=== PATIENT | male | born 1955 | race Asian ===

== ENCOUNTER 2016-11-14 10:13 | Inpatient (IN) | payer MEDICAID ==
[~2016-11-14] VITALS: Ht 188 cm; Wt 126.8 kg
[~2016-11-14 10:13] MED LIST: ALLO100T PO; ASCO500C6 PO; FERR-63 PO; GLIP10TA10 PO; LISI-604 PO; METF10002 PO; MITIGARE
[2016-11-14] MEDS ORDERED: CELE50CA PO (10:24)
[2016-11-14 12:01] LABS: BASOPHILS % 0.6 % (0.0-2.0); EOSINOPHILS % 3.8 % (0.0-5.0); HEMATOCRIT. 25.4 % (42.0-52.0); HEMOGLOBIN. 8.2 g/dL (14.0-18.0); LYMPHOCYTES % 12.8 % (20.0-50.0); MEAN CORPUSCULAR HEMOGLOBIN 26.6 pg (28.0-32.0); MEAN CORPUSCULAR VOLUME 81.7 fL (80.0-94.0); MEAN PLATELET VOLUME 6.3 fl (7.4-10.4); MONOCYTES % 8.5 % (2.0-8.0); NEUTROPHILS % 74.3 % (40.0-76.0); PLATELET 458 x1000/uL (130-400); RED CELL DISTRIBUTION WIDTH 14.7 % (11.6-14.6)
[2016-11-14 12:06] LABS: INR 1.4; PROTHROMBIN TIME 14.5 sec
[2016-11-14 12:11] LABS: CARBON DIOXIDE 23 mEq/L (21-32); CHLORIDE 108 mEq/L (98-107)
[2016-11-14] MEDS ORDERED: METRONIDAZOLE 500MG TABLET PO ONE (14:00)
[2016-11-14 14:06] LABS: CLARITY URINE CLEAR (CLEAR); COLOR URINE YELLOW (YELLOW); GLUCOSE URINE TRACE (NEGATIVE); KETONES URINE NEGATIVE (NEGATIVE); LEUKOCYTE ESTERASE URINE NEGATIVE (NEGATIVE); NITRITE URINE NEGATIVE (NEGATIVE); OCCULT BLOOD URINE NEGATIVE (NEGATIVE); PROTEIN URINE 3+ (NEGATIVE); UROBILINOGEN URINE 0.2 E.U./dL (0.2-1.0)
[2016-11-14] MEDS ORDERED: DIPHENHYDRAMINE 50MG/ML VIAL IV PRN (16:30)
[2016-11-14] MEDS ORDERED: DEXTROSE 50% WATER 50ML SYRINGE IV PRN (16:30)
[2016-11-14] MEDS ORDERED: CEFTRIAXONE 1 G PREMIX 50 ML IV SCH (16:30)
[2016-11-14] MEDS ORDERED: CEFTRIAXONE 2 G PREMIX 50 ML IV NR (16:45)
[2016-11-14] MEDS: INSULIN LISPRO 100 UNITS/ML SUBCUT SCH ×2 (17:54→21:00)
[2016-11-14 17:55] VITALS: BP 144/89
[2016-11-14] MEDS: BLOOD SUGAR DIAGNOSTIC STRIP TEST SCH ×2 (17:55→21:45)
[2016-11-14] MEDS ORDERED: PANT40TA4 PO (18:02)
[2016-11-14] MEDS ORDERED: METO25TA6 PO (18:02)
[2016-11-14] MEDS ORDERED: DOCU-138 PO (18:02)
[2016-11-14] MEDS ORDERED: LOSA25TA12 PO (18:02)
[2016-11-14] MEDS ORDERED: HYDR-523 PO (18:02)
[2016-11-14 20:00] VITALS: BP 137/78
[2016-11-14] MEDS ORDERED: CEFTRIAXONE 2 G PREMIX 50 ML IV SCH (20:00)
[2016-11-14] MEDS: IPRATROPIUM/ALBUTEROL 0.5-3(2.5)MG/3ML NEB INH SCH (22:03)
[2016-11-14] MEDS: CEFTRIAXONE 2 G in DEXTROSE 5% WATER 50 ML IV SCH (22:06)
[2016-11-14] MEDS: METRONIDAZOLE 500 MG PREMIX 100 ML IV SCH (22:07)
[2016-11-14 23:25] VITALS: BP 144/89
[2016-11-15] VITALS: BP 118/61
[2016-11-15] MEDS: IPRATROPIUM/ALBUTEROL 0.5-3(2.5)MG/3ML NEB INH SCH ×4 (02:29→21:01)
[2016-11-15 04:00] VITALS: BP 125/81
[2016-11-15] MEDS: METRONIDAZOLE 500 MG PREMIX 100 ML IV SCH ×3 (05:47→22:36)
[2016-11-15 06:36] LABS: BASOPHILS % 0.6 % (0.0-2.0); EOSINOPHILS % 2.7 % (0.0-5.0); HEMATOCRIT. 24.1 % (42.0-52.0); HEMOGLOBIN. 7.8 g/dL (14.0-18.0); LYMPHOCYTES % 12.9 % (20.0-50.0); MEAN CORPUSCULAR HEMOGLOBIN 26.4 pg (28.0-32.0); MEAN CORPUSCULAR VOLUME 81.7 fL (80.0-94.0); MEAN PLATELET VOLUME 6.6 fl (7.4-10.4); MONOCYTES % 8.2 % (2.0-8.0); NEUTROPHILS % 75.6 % (40.0-76.0); PLATELET 432 x1000/uL (130-400); RED BLOOD CELL COUNT 2.96 mill/uL (4.7-6.1); RED CELL DISTRIBUTION WIDTH 14.8 % (11.6-14.6)
[2016-11-15 07:06] LABS: CARBON DIOXIDE 21 mEq/L (21-32); CHLORIDE 110 mEq/L (98-107); HDL CHOLESTEROL 19 mg/dL (40-59); LDL CHOLESTEROL 38 mg/dL (5-100)
[2016-11-15] MEDS: INSULIN LISPRO 100 UNITS/ML SUBCUT SCH ×4 (07:50→21:00)
[2016-11-15] MEDS: BLOOD SUGAR DIAGNOSTIC STRIP TEST SCH ×4 (07:55→21:00)
[2016-11-15 08:00] VITALS: BP 137/92
[2016-11-15] MEDS: LACTOBACILLUS GG CAPSULE PO SCH (09:26)
[2016-11-15 12:00] VITALS: BP 140/87
[2016-11-15 16:00] VITALS: BP 143/85
[2016-11-15 20:00] VITALS: BP 137/83
[2016-11-15] MEDS: CEFTRIAXONE 2 G in DEXTROSE 5% WATER 50 ML IV SCH (20:42)
[2016-11-16] VITALS: BP 128/78
[2016-11-16] MEDS: IPRATROPIUM/ALBUTEROL 0.5-3(2.5)MG/3ML NEB INH SCH ×4 (03:12→19:53)
[2016-11-16 04:00] VITALS: BP 133/80
[2016-11-16] MEDS: METRONIDAZOLE 500 MG PREMIX 100 ML IV SCH ×2 (06:05→16:00)
[2016-11-16] MEDS: BLOOD SUGAR DIAGNOSTIC STRIP TEST SCH ×4 (06:36→21:00)
[2016-11-16 07:14] LABS: BASOPHILS % 0.5 % (0.0-2.0); EOSINOPHILS % 2.1 % (0.0-5.0); HEMATOCRIT. 23.9 % (42.0-52.0); HEMOGLOBIN. 7.8 g/dL (14.0-18.0); LYMPHOCYTES % 10.7 % (20.0-50.0); MEAN CORPUSCULAR HEMOGLOBIN 26.5 pg (28.0-32.0); MEAN CORPUSCULAR VOLUME 81.3 fL (80.0-94.0); MEAN PLATELET VOLUME 6.4 fl (7.4-10.4); MONOCYTES % 8.9 % (2.0-8.0); NEUTROPHILS % 77.8 % (40.0-76.0); PLATELET 419 x1000/uL (130-400); RED BLOOD CELL COUNT 2.93 mill/uL (4.7-6.1)
[2016-11-16] MEDS: INSULIN LISPRO 100 UNITS/ML SUBCUT SCH ×4 (07:50→23:55)
[2016-11-16 08:00] VITALS: BP 145/89
[2016-11-16] MEDS: LACTOBACILLUS GG CAPSULE PO SCH (09:24)
[2016-11-16 12:00] VITALS: BP 139/89
[2016-11-16] MEDS: HYDROCODONE/ACETAMINOPHEN 5/325MG TABLET PO PRN ×2 (12:50→18:39)
[2016-11-16 20:00] VITALS: BP 125/83
[2016-11-16] MEDS: CEFTRIAXONE 2 G in DEXTROSE 5% WATER 50 ML IV SCH (20:21)
[2016-11-17] VITALS: BP 153/88
[2016-11-17] MEDS: HYDROCODONE/ACETAMINOPHEN 5/325MG TABLET PO PRN ×2 (00:02→08:23)
[2016-11-17] MEDS: METRONIDAZOLE 500 MG PREMIX 100 ML IV SCH ×4 (00:03→22:42)
[2016-11-17] MEDS: ACETAMINOPHEN 325MG TABLET PO PRN ×3 (00:57→22:42)
[2016-11-17] MEDS: IPRATROPIUM/ALBUTEROL 0.5-3(2.5)MG/3ML NEB INH SCH ×4 (01:20→21:11)
[2016-11-17 04:00] VITALS: BP 119/65
[2016-11-17] MEDS: BLOOD SUGAR DIAGNOSTIC STRIP TEST SCH ×4 (07:57→21:10)
[2016-11-17 08:00] VITALS: BP 155/88
[2016-11-17] MEDS: INSULIN LISPRO 100 UNITS/ML SUBCUT SCH ×4 (08:19→21:09)
[2016-11-17] MEDS: LACTOBACILLUS GG CAPSULE PO SCH (08:22)
[2016-11-17 12:00] VITALS: BP 126/78
[2016-11-17 16:00] VITALS: BP 105/67
[2016-11-17] MEDS ORDERED: IBUPROFEN 600MG TABLET PO PRN (16:45)
[2016-11-17 19:31] LABS: TOTAL IRON BINDING CAPACITY 192 ug/dL (250-450)
[2016-11-17 20:00] VITALS: BP 163/84
[2016-11-17] MEDS ORDERED: ACETAMINOPHEN 650MG/20.3ML UDC PO PRN (20:15)
[2016-11-17] MEDS: CEFTRIAXONE 2 G in DEXTROSE 5% WATER 50 ML IV SCH (20:31)
[2016-11-17] MEDS: MORPHINE SULFATE 4 MG/ML CPJ (NOT FOR IM USE) IV PRN (20:39)
[2016-11-18] VITALS: BP 122/72
[2016-11-18] MEDS: IPRATROPIUM/ALBUTEROL 0.5-3(2.5)MG/3ML NEB INH SCH ×4 (00:56→20:22)
[2016-11-18 04:00] VITALS: BP 127/72
[2016-11-18] MEDS: METRONIDAZOLE 500 MG PREMIX 100 ML IV SCH ×3 (06:31→21:35)
[2016-11-18] MEDS: BLOOD SUGAR DIAGNOSTIC STRIP TEST SCH ×4 (06:57→21:34)
[2016-11-18 07:38] LABS: BASOPHILS % 0.4 % (0.0-2.0); HEMATOCRIT. 23.7 % (42.0-52.0); HEMOGLOBIN. 7.7 g/dL (14.0-18.0); LYMPHOCYTES % 7.3 % (20.0-50.0); MEAN CORPUSCULAR HEMOGLOBIN 26.5 pg (28.0-32.0); MEAN CORPUSCULAR VOLUME 81.8 fL (80.0-94.0); MEAN PLATELET VOLUME 6.9 fl (7.4-10.4); MONOCYTES % 12.7 % (2.0-8.0); NEUTROPHILS % 78.6 % (40.0-76.0); PLATELET 384 x1000/uL (130-400); RED CELL DISTRIBUTION WIDTH 15.1 % (11.6-14.6)
[2016-11-18 08:00] VITALS: BP 169/99
[2016-11-18] MEDS: INSULIN LISPRO 100 UNITS/ML SUBCUT SCH ×4 (09:01→21:53)
[2016-11-18] MEDS: LACTOBACILLUS GG CAPSULE PO SCH (09:01)
[2016-11-18] MEDS: MORPHINE SULFATE 4 MG/ML CPJ (NOT FOR IM USE) IV PRN ×3 (09:32→21:41)
[2016-11-18] MEDS: CLONIDINE 0.1MG TABLET PO PRN (09:41)
[2016-11-18] MEDS ORDERED: MAGNESIUM 4 G PREMIX 100 ML IV SCH (10:00)
[2016-11-18 12:00] VITALS: BP 134/68
[2016-11-18] MEDS: HYDROCODONE/ACETAMINOPHEN 5/325MG TABLET PO PRN (14:11)
[2016-11-18] MEDS ORDERED: SODIUM CHLORIDE 0.45% 1,000 ML IV SCH (14:30)
[2016-11-18 16:00] VITALS: BP 112/63
[2016-11-18] MEDS: IRON SUCROSE COMPLEX 100 MG/5 ML ML IV SCH (17:14)
[2016-11-18 18:32] LABS: FOLIC ACID (FOLATE) SERUM 16.3 ng/mL (>5.38)
[2016-11-18 20:00] VITALS: BP 106/58
[2016-11-18] MEDS: METOPROLOL TARTRATE 25MG TABLET PO SCH (21:00)
[2016-11-18] MEDS: CEFTRIAXONE 2 G in DEXTROSE 5% WATER 50 ML IV SCH (21:34)
[2016-11-19] VITALS: BP 165/89
[2016-11-19] MEDS: IPRATROPIUM/ALBUTEROL 0.5-3(2.5)MG/3ML NEB INH SCH ×4 (01:44→21:13)
[2016-11-19] MEDS: CLONIDINE 0.1MG TABLET PO PRN (02:00)
[2016-11-19] MEDS: MORPHINE SULFATE 4 MG/ML CPJ (NOT FOR IM USE) IV PRN ×3 (02:00→15:20)
[2016-11-19] MEDS: HYDROCODONE/ACETAMINOPHEN 5/325MG TABLET PO PRN (03:17)
[2016-11-19 04:00] VITALS: BP 128/81
[2016-11-19] MEDS: METRONIDAZOLE 500 MG PREMIX 100 ML IV SCH ×3 (06:37→22:47)
[2016-11-19] MEDS: BLOOD SUGAR DIAGNOSTIC STRIP TEST SCH ×4 (06:38→21:05)
[2016-11-19] MEDS: INSULIN LISPRO 100 UNITS/ML SUBCUT SCH ×4 (06:45→21:15)
[2016-11-19 07:17] LABS: HEMATOCRIT. 23.9 % (42.0-52.0); HEMOGLOBIN. 7.7 g/dL (14.0-18.0); MEAN PLATELET VOLUME 7.2 fl (7.4-10.4); PLATELET 426 x1000/uL (130-400); RED BLOOD CELL COUNT 2.95 mill/uL (4.7-6.1); RED CELL DISTRIBUTION WIDTH 15.4 % (11.6-14.6)
[2016-11-19 08:00] VITALS: BP 99/75
[2016-11-19] MEDS: LACTOBACILLUS GG CAPSULE PO SCH (08:34)
[2016-11-19] MEDS: IRON SUCROSE COMPLEX 100 MG/5 ML ML IV SCH (08:36)
[2016-11-19] MEDS: METOPROLOL TARTRATE 25MG TABLET PO SCH ×2 (08:47→21:05)
[2016-11-19 12:00] VITALS: BP 135/77
[2016-11-19 12:56] LABS: PLATELET ESTIMATE SLIGHTLY INCREASED
[2016-11-19] MEDS: ACETAMINOPHEN 325MG TABLET PO PRN ×2 (14:17→21:04)
[2016-11-19 16:00] VITALS: BP 100/70
[2016-11-19] MEDS ORDERED: VANCOMYCIN 2,000 MG in DEXT 5% WATER 500 ML IV SCH (18:00)
[2016-11-19 20:00] VITALS: BP 111/71
[2016-11-19] MEDS: CEFTRIAXONE 2 G in DEXTROSE 5% WATER 50 ML IV SCH (21:04)
[2016-11-20] VITALS (13 sets, daily range): BP systolic 102–144; BP diastolic 65–87
[2016-11-20] MEDS: IPRATROPIUM/ALBUTEROL 0.5-3(2.5)MG/3ML NEB INH SCH ×4 (03:45→20:20)
[2016-11-20] MEDS: MORPHINE SULFATE 4 MG/ML CPJ (NOT FOR IM USE) IV PRN ×3 (04:05→18:56)
[2016-11-20] MEDS ORDERED: DILTIAZEM HCL 5MG/ML 5ML VIAL IV ONE (05:15)
[2016-11-20] MEDS ORDERED: DILTIAZEM HCL 5MG/ML 5ML VIAL IV NR (05:15)
[2016-11-20] MEDS: BLOOD SUGAR DIAGNOSTIC STRIP TEST SCH ×4 (06:25→21:27)
[2016-11-20] MEDS: METRONIDAZOLE 500 MG PREMIX 100 ML IV SCH ×3 (06:25→22:39)
[2016-11-20] MEDS: ACETAMINOPHEN 325MG TABLET PO PRN (08:05)
[2016-11-20] MEDS: LACTOBACILLUS GG CAPSULE PO SCH (08:06)
[2016-11-20] MEDS: METOPROLOL TARTRATE 25MG TABLET PO SCH ×2 (08:08→21:27)
[2016-11-20] MEDS: DILTIAZEM 125MG in DEXTROSE 5% WATER 125ML IV SCH ×3 (08:09→21:18)
[2016-11-20] MEDS: INSULIN LISPRO 100 UNITS/ML SUBCUT SCH ×4 (08:11→21:27)
[2016-11-20 09:19] LABS: HEMATOCRIT. 23.7 % (42.0-52.0); HEMOGLOBIN. 7.5 g/dL (14.0-18.0); MEAN CORPUSCULAR HEMOGLOBIN 25.9 pg (28.0-32.0); MEAN CORPUSCULAR VOLUME 81.5 fL (80.0-94.0); MEAN PLATELET VOLUME 7.5 fl (7.4-10.4); PLATELET 368 x1000/uL (130-400); RED CELL DISTRIBUTION WIDTH 15.7 % (11.6-14.6)
[2016-11-20] MEDS: VANCOMYCIN 1250MG in DEXTROSE 5% WATER 250ML IV SCH (12:00)
[2016-11-20] MEDS ORDERED: HYDROCODONE/APAP 7.5/325MG 1 TAB TABLET PO PRN (13:00)
[2016-11-20] MEDS ORDERED: ALLOPURINOL 100 MG TABLET PO SCH (13:00)
[2016-11-20] MEDS: PANTOPRAZOLE 40MG DR TABLET PO SCH (13:40)
[2016-11-20] MEDS ORDERED: MAGNESIUM 2 G PREMIX 50 ML IV SCH (14:00)
[2016-11-20 15:43] LABS: PLATELET ESTIMATE NORMAL
[2016-11-20] MEDS: SODIUM CHLORIDE 0.9% 1,000 ML IV NR (16:10)
[2016-11-20] MEDS ORDERED: BLOOD SUGAR DIAGNOSTIC STRIP TEST SCH (16:50)
[2016-11-20] MEDS ORDERED: INSULIN LISPRO 100 UNITS/ML SUBCUT SCH (17:20)
[2016-11-20] MEDS: CEFTRIAXONE 2 G in DEXTROSE 5% WATER 50 ML IV SCH (20:54)
[2016-11-20] MEDS: METHYLPREDNISOLONE SOD SUCC 40 MG/ML VIAL IV SCH ×2 (21:26→21:33)
[2016-11-20] MEDS: CELECOXIB 200MG CAPSULE PO SCH (21:27)
[2016-11-20] MEDS ORDERED: ALLOPURINOL 100 MG TABLET PO NR (21:30)
[2016-11-20] MEDS: BACITRACIN ZINC 15GM TUBE TOP SCH (22:14)
[2016-11-21] VITALS (12 sets, daily range): BP systolic 94–129; BP diastolic 52–88
[2016-11-21] MEDS: IPRATROPIUM/ALBUTEROL 0.5-3(2.5)MG/3ML NEB INH SCH ×4 (00:26→20:10)
[2016-11-21] MEDS: MORPHINE SULFATE 4 MG/ML CPJ (NOT FOR IM USE) IV PRN (00:33)
[2016-11-21] MEDS: DILTIAZEM 125MG in DEXTROSE 5% WATER 125ML IV SCH (01:24)
[2016-11-21] MEDS: ONDANSETRON HCL 4MG/2ML VIAL IV PRN (04:26)
[2016-11-21] MEDS: METRONIDAZOLE 500 MG PREMIX 100 ML IV SCH ×3 (05:07→21:15)
[2016-11-21] MEDS: BLOOD SUGAR DIAGNOSTIC STRIP TEST SCH ×4 (05:54→21:14)
[2016-11-21] MEDS: PANTOPRAZOLE 40MG DR TABLET PO SCH (06:03)
[2016-11-21] MEDS: METHYLPREDNISOLONE SOD SUCC 40 MG/ML VIAL IV SCH ×3 (06:03→21:15)
[2016-11-21] MEDS: VANCOMYCIN 1250MG in DEXTROSE 5% WATER 250ML IV SCH (06:03)
[2016-11-21 06:29] LABS: HEMATOCRIT. 25.4 % (42.0-52.0); HEMOGLOBIN. 8.1 g/dL (14.0-18.0); MEAN CORPUSCULAR VOLUME 81.4 fL (80.0-94.0); MEAN PLATELET VOLUME 7.8 fl (7.4-10.4); PLATELET 382 x1000/uL (130-400); RED BLOOD CELL COUNT 3.11 mill/uL (4.7-6.1); RED CELL DISTRIBUTION WIDTH 15.3 % (11.6-14.6)
[2016-11-21] MEDS ORDERED: SODIUM POLYSTYRENE SULFONATE 15 G/60 ML BOT PO NR (08:30)
[2016-11-21] MEDS: INSULIN LISPRO 100 UNITS/ML SUBCUT SCH ×4 (09:12→21:16)
[2016-11-21] MEDS: LACTOBACILLUS GG CAPSULE PO SCH (09:13)
[2016-11-21] MEDS: BACITRACIN ZINC 15GM TUBE TOP SCH (09:13)
[2016-11-21] MEDS: CELECOXIB 200MG CAPSULE PO SCH (09:13)
[2016-11-21] MEDS: ALLOPURINOL 300 MG TABLET PO SCH (09:13)
[2016-11-21] MEDS: METOPROLOL TARTRATE 25MG TABLET PO SCH (09:14)
[2016-11-21] MEDS: SODIUM CHLORIDE 0.9% 1,000 ML IV NR (09:15)
[2016-11-21 09:46] LABS: CREATINE KINASE 54 IU/L (39-308); PLATELET ESTIMATE NORMAL
[2016-11-21] MEDS: DOCUSATE SODIUM 100MG CAPSULE PO PRN (17:56)
[2016-11-21] MEDS: CEFTRIAXONE 2 G in DEXTROSE 5% WATER 50 ML IV SCH (20:13)
[2016-11-21] MEDS: METOPROLOL TARTRATE 50MG TABLET PO SCH (21:15)
[2016-11-22] VITALS (12 sets, daily range): BP systolic 116–141; BP diastolic 61–85
[2016-11-22] MEDS: IPRATROPIUM/ALBUTEROL 0.5-3(2.5)MG/3ML NEB INH SCH ×4 (01:40→21:00)
[2016-11-22] MEDS ORDERED: INSULIN LISPRO 100 UNITS/ML SUBCUT SCH (06:15)
[2016-11-22] MEDS: DOCUSATE SODIUM 100MG CAPSULE PO PRN (06:42)
[2016-11-22] MEDS: METHYLPREDNISOLONE SOD SUCC 40 MG/ML VIAL IV SCH ×2 (06:42→13:14)
[2016-11-22] MEDS: PANTOPRAZOLE 40MG DR TABLET PO SCH (06:42)
[2016-11-22] MEDS: INSULIN LISPRO 100 UNITS/ML SUBCUT SCH ×4 (06:43→21:09)
[2016-11-22] MEDS: BLOOD SUGAR DIAGNOSTIC STRIP TEST SCH ×4 (06:50→20:11)
[2016-11-22 06:53] LABS: HEMATOCRIT. 29.2 % (42.0-52.0); MEAN CORPUSCULAR HEMOGLOBIN 26.3 pg (28.0-32.0); MEAN PLATELET VOLUME 7.8 fl (7.4-10.4); PLATELET 430 x1000/uL (130-400); RED BLOOD CELL COUNT 3.43 mill/uL (4.7-6.1); RED CELL DISTRIBUTION WIDTH 15.8 % (11.6-14.6)
[2016-11-22 07:39] LABS: PHOSPHORUS 4.1 mg/dL (2.5-4.9)
[2016-11-22] MEDS ORDERED: SODIUM POLYSTYRENE SULFONATE 15 G/60 ML BOT PO SCH (09:00)
[2016-11-22] MEDS: ALLOPURINOL 300 MG TABLET PO SCH (09:11)
[2016-11-22] MEDS: LACTOBACILLUS GG CAPSULE PO SCH (09:11)
[2016-11-22] MEDS: CELECOXIB 200MG CAPSULE PO SCH (09:12)
[2016-11-22] MEDS: METOPROLOL TARTRATE 50MG TABLET PO SCH ×2 (09:12→20:11)
[2016-11-22] MEDS: BACITRACIN ZINC 15GM TUBE TOP SCH (09:19)
[2016-11-22] MEDS ORDERED: INSULIN LISPRO 100 UNITS/ML SUBCUT NR ×2 (11:30→16:47)
[2016-11-22 12:07] LABS: PLATELET ESTIMATE INCREASED
[2016-11-22] MEDS ORDERED: VANCOMYCIN 1 G PREMIX 200 ML IV SCH (13:00)
[2016-11-22] MEDS: DILTIAZEM HCL 60MG TABLET PO SCH ×2 (13:15→21:10)
[2016-11-22 13:18] LABS: HEPATITIS B SURFACE ANTIGEN NEGATIVE
[2016-11-22 13:45] LABS: HEPATITIS B CORE AB IGM NEGATIVE
[2016-11-22 13:46] LABS: HEPATITIS A AB IGM NEGATIVE (NEGATIVE)
[2016-11-22] MEDS: CEFTRIAXONE 2 G in DEXTROSE 5% WATER 50 ML IV SCH (20:07)
[2016-11-22] MEDS: PREDNISONE 10MG TABLET PO SCH (21:10)
[2016-11-23] VITALS (15 sets, daily range): BP systolic 105–162; BP diastolic 64–124
[2016-11-23] MEDS: IPRATROPIUM/ALBUTEROL 0.5-3(2.5)MG/3ML NEB INH SCH ×4 (01:30→20:39)
[2016-11-23] MEDS: ACETAMINOPHEN 325MG TABLET PO PRN (05:45)
[2016-11-23] MEDS: DILTIAZEM HCL 60MG TABLET PO SCH (05:46)
[2016-11-23] MEDS: BACITRACIN ZINC 15GM TUBE TOP SCH (05:46)
[2016-11-23] MEDS: PANTOPRAZOLE 40MG DR TABLET PO SCH (05:55)
[2016-11-23] MEDS: BLOOD SUGAR DIAGNOSTIC STRIP TEST SCH ×4 (05:55→20:16)
[2016-11-23 07:02] LABS: HEMATOCRIT. 28.9 % (42.0-52.0); HEMOGLOBIN. 9.3 g/dL (14.0-18.0); MEAN CORPUSCULAR HEMOGLOBIN 26.1 pg (28.0-32.0); MEAN PLATELET VOLUME 7.5 fl (7.4-10.4); PLATELET 487 x1000/uL (130-400); RED BLOOD CELL COUNT 3.56 mill/uL (4.7-6.1)
[2016-11-23 07:35] LABS: PHOSPHORUS 3.7 mg/dL (2.5-4.9)
[2016-11-23 07:42] LABS: MEAN CORPUSCULAR VOLUME 82.2 fL (80.0-94.0)
[2016-11-23] MEDS: INSULIN LISPRO 100 UNITS/ML SUBCUT SCH ×4 (08:26→21:27)
[2016-11-23] MEDS ORDERED: CELECOXIB 200MG CAPSULE PO SCH (09:00)
[2016-11-23] MEDS: METOPROLOL TARTRATE 50MG TABLET PO SCH ×2 (09:16→20:16)
[2016-11-23] MEDS: ALLOPURINOL 300 MG TABLET PO SCH (09:17)
[2016-11-23] MEDS: PREDNISONE 10MG TABLET PO SCH ×2 (09:17→16:54)
[2016-11-23] MEDS: LACTOBACILLUS GG CAPSULE PO SCH (09:17)
[2016-11-23] MEDS: CELECOXIB 100MG CAPSULE PO SCH (10:48)
[2016-11-23 13:11] LABS: PLATELET ESTIMATE SLIGHTL
[2016-11-23] MEDS: DILTIAZEM HCL 90MG TABLET PO SCH ×2 (13:37→21:28)
[2016-11-23] MEDS: ONDANSETRON HCL 4MG/2ML VIAL IV PRN (15:46)
[2016-11-23] MEDS ORDERED: BISACODYL 10MG SUPP PR NR (16:15)
[2016-11-23] MEDS: MORPHINE SULFATE 4 MG/ML CPJ (NOT FOR IM USE) IV PRN (16:41)
[2016-11-23] MEDS: SODIUM CHLORIDE 0.9% 1,000 ML IV SCH (16:42)
[2016-11-23] MEDS: VANCOMYCIN 1250MG in DEXTROSE 5% WATER 250ML IV SCH (16:42)
[2016-11-23] MEDS: CEFTRIAXONE 2 G in DEXTROSE 5% WATER 50 ML IV SCH (19:54)
[2016-11-24] VITALS (12 sets, daily range): BP systolic 103–124; BP diastolic 61–84
[2016-11-24] MEDS: IPRATROPIUM/ALBUTEROL 0.5-3(2.5)MG/3ML NEB INH SCH ×4 (02:46→19:55)
[2016-11-24] MEDS: BACITRACIN ZINC 15GM TUBE TOP SCH (05:01)
[2016-11-24] MEDS: BLOOD SUGAR DIAGNOSTIC STRIP TEST SCH ×4 (06:32→20:46)
[2016-11-24] MEDS: INSULIN LISPRO 100 UNITS/ML SUBCUT SCH ×4 (06:52→20:53)
[2016-11-24] MEDS: MORPHINE SULFATE 4 MG/ML CPJ (NOT FOR IM USE) IV PRN ×3 (06:58→22:06)
[2016-11-24] MEDS: LACTOBACILLUS GG CAPSULE PO SCH (08:14)
[2016-11-24] MEDS: CELECOXIB 100MG CAPSULE PO SCH (08:14)
[2016-11-24] MEDS: PREDNISONE 10MG TABLET PO SCH ×2 (08:14→17:04)
[2016-11-24] MEDS: PANTOPRAZOLE SODIUM 40 MG/VIAL IV SCH (08:14)
[2016-11-24] MEDS: ALLOPURINOL 300 MG TABLET PO SCH ×2 (08:14→20:41)
[2016-11-24] MEDS: METOPROLOL TARTRATE 5MG/5ML VIAL IV SCH ×3 (08:40→17:04)
[2016-11-24] MEDS: SODIUM CHLORIDE 0.9% 1,000 ML IV SCH (08:40)
[2016-11-24 09:32] LABS: BASOPHILS % 0.1 % (0.0-2.0); EOSINOPHILS % 0.1 % (0.0-5.0); HEMATOCRIT. 28.9 % (42.0-52.0); HEMOGLOBIN. 9.4 g/dL (14.0-18.0); LYMPHOCYTES % 9.1 % (20.0-50.0); MEAN CORPUSCULAR HEMOGLOBIN 26.5 pg (28.0-32.0); MEAN CORPUSCULAR VOLUME 81.3 fL (80.0-94.0); MEAN PLATELET VOLUME 7.4 fl (7.4-10.4); MONOCYTES % 13.4 % (2.0-8.0); NEUTROPHILS % 77.3 % (40.0-76.0); PLATELET 432 x1000/uL (130-400); RED BLOOD CELL COUNT 3.55 mill/uL (4.7-6.1)
[2016-11-24] MEDS: VANCOMYCIN 1250MG in DEXTROSE 5% WATER 250ML IV SCH (15:07)
[2016-11-24] MEDS: TETRACAINE/BENZOCAINE/BUTAMBEN 20 GM SPRAY MM PRN (16:51)
[2016-11-24] MEDS: COLCHICINE 0.6MG TABLET PO SCH (20:41)
[2016-11-24] MEDS: METHYLPREDNISOLONE SOD SUCC 40 MG/ML VIAL IV SCH (20:53)
[2016-11-24] MEDS: CEFTRIAXONE 2 G in DEXTROSE 5% WATER 50 ML IV SCH (20:54)
[2016-11-25] VITALS (12 sets, daily range): BP systolic 94–133; BP diastolic 60–80
[2016-11-25] MEDS: METOPROLOL TARTRATE 5MG/5ML VIAL IV SCH ×4 (00:01→17:24)
[2016-11-25] MEDS: IPRATROPIUM/ALBUTEROL 0.5-3(2.5)MG/3ML NEB INH SCH ×5 (01:21→20:05)
[2016-11-25] MEDS: SODIUM CHLORIDE 0.9% 1,000 ML IV SCH (02:52)
[2016-11-25] MEDS: METHYLPREDNISOLONE SOD SUCC 40 MG/ML VIAL IV SCH ×4 (02:54→21:04)
[2016-11-25] MEDS: MORPHINE SULFATE 4 MG/ML CPJ (NOT FOR IM USE) IV PRN (05:22)
[2016-11-25 05:38] LABS: HEMATOCRIT. 29.1 % (42.0-52.0); HEMOGLOBIN. 9.3 g/dL (14.0-18.0); MEAN CORPUSCULAR HEMOGLOBIN 26.4 pg (28.0-32.0); MEAN CORPUSCULAR VOLUME 82.8 fL (80.0-94.0); MEAN PLATELET VOLUME 7.6 fl (7.4-10.4); PLATELET 479 x1000/uL (130-400); RED BLOOD CELL COUNT 3.52 mill/uL (4.7-6.1); RED CELL DISTRIBUTION WIDTH 15.7 % (11.6-14.6)
[2016-11-25] MEDS: BLOOD SUGAR DIAGNOSTIC STRIP TEST SCH ×4 (06:16→21:05)
[2016-11-25] MEDS: PANTOPRAZOLE SODIUM 40 MG/VIAL IV SCH (08:24)
[2016-11-25] MEDS: INSULIN LISPRO 100 UNITS/ML SUBCUT SCH ×4 (08:24→21:06)
[2016-11-25] MEDS: LACTOBACILLUS GG CAPSULE PO SCH (09:00)
[2016-11-25] MEDS: ALLOPURINOL 300 MG TABLET PO SCH ×2 (09:00→16:23)
[2016-11-25] MEDS: COLCHICINE 0.6MG TABLET PO SCH ×2 (09:00→21:05)
[2016-11-25] MEDS: CELECOXIB 100MG CAPSULE PO SCH (09:00)
[2016-11-25 10:31] LABS: PLATELET ESTIMATE INCREASED
[2016-11-25] MEDS: DILTIAZEM HCL 125 MG in DEXT 5% WATER 100 ML IV SCH ×2 (10:35→22:58)
[2016-11-25] MEDS: BACITRACIN ZINC 15GM TUBE TOP SCH (13:48)
[2016-11-25] MEDS: VANCOMYCIN 1250MG in DEXTROSE 5% WATER 250ML IV SCH (14:30)
[2016-11-25] MEDS ORDERED: DIATR MEGLU/DIATRIZOATE SOLN 120ML ONE (14:36)
[2016-11-25] MEDS: CEFTRIAXONE 2 G in DEXTROSE 5% WATER 50 ML IV SCH (21:04)
[2016-11-26] VITALS (12 sets, daily range): BP systolic 118–140; BP diastolic 67–79
[2016-11-26] MEDS: METOPROLOL TARTRATE 5MG/5ML VIAL IV SCH ×5 (00:02→23:38)
[2016-11-26] MEDS: SODIUM CHLORIDE 0.9% 1,000 ML IV SCH ×2 (00:02→16:32)
[2016-11-26] MEDS: IPRATROPIUM/ALBUTEROL 0.5-3(2.5)MG/3ML NEB INH SCH ×4 (00:41→20:24)
[2016-11-26] MEDS: METHYLPREDNISOLONE SOD SUCC 40 MG/ML VIAL IV SCH ×4 (02:34→21:21)
[2016-11-26 07:00] LABS: HEMATOCRIT. 28.2 % (42.0-52.0); HEMOGLOBIN. 8.9 g/dL (14.0-18.0); MEAN CORPUSCULAR HEMOGLOBIN 26.1 pg (28.0-32.0); MEAN CORPUSCULAR VOLUME 82.5 fL (80.0-94.0); MEAN PLATELET VOLUME 7.5 fl (7.4-10.4); PLATELET 501 x1000/uL (130-400); RED BLOOD CELL COUNT 3.42 mill/uL (4.7-6.1); RED CELL DISTRIBUTION WIDTH 15.7 % (11.6-14.6)
[2016-11-26] MEDS: BLOOD SUGAR DIAGNOSTIC STRIP TEST SCH ×4 (07:35→21:00)
[2016-11-26] MEDS: INSULIN LISPRO 100 UNITS/ML SUBCUT SCH ×4 (07:56→21:15)
[2016-11-26] MEDS: PANTOPRAZOLE SODIUM 40 MG/VIAL IV SCH (08:17)
[2016-11-26] MEDS: LACTOBACILLUS GG CAPSULE PO SCH (08:17)
[2016-11-26] MEDS: ALLOPURINOL 300 MG TABLET PO SCH ×2 (08:17→16:29)
[2016-11-26] MEDS: COLCHICINE 0.6MG TABLET PO SCH ×2 (08:17→21:00)
[2016-11-26] MEDS: BACITRACIN ZINC 15GM TUBE TOP SCH (08:24)
[2016-11-26] MEDS: DILTIAZEM HCL 125 MG in DEXT 5% WATER 100 ML IV SCH (11:49)
[2016-11-26] MEDS: VANCOMYCIN 1250MG in DEXTROSE 5% WATER 250ML IV SCH (14:36)
[2016-11-26 15:44] LABS: ATYPICAL LYMPHOCYTES 2; NUCLEATED RED BLOOD CELLS 1 /100 WBC
[2016-11-26 15:45] LABS: PLATELET ESTIMATE INCREASED
[2016-11-26] MEDS: METOCLOPRAMIDE HCL 10MG/2ML VIAL IV SCH ×2 (17:05→23:38)
[2016-11-26] MEDS: ONDANSETRON HCL 4MG/2ML VIAL IV PRN (17:58)
[2016-11-26] MEDS: CEFTRIAXONE 2 G in DEXTROSE 5% WATER 50 ML IV SCH (21:22)
[2016-11-26] MEDS: BISACODYL 10MG SUPP PR SCH (22:00)
[2016-11-27] VITALS (18 sets, daily range): BP systolic 106–150; BP diastolic 58–105
[2016-11-27] MEDS: IPRATROPIUM/ALBUTEROL 0.5-3(2.5)MG/3ML NEB INH SCH ×4 (01:19→19:58)
[2016-11-27] MEDS: COLCHICINE 0.6MG TABLET PO SCH ×2 (02:04→20:42)
[2016-11-27] MEDS: METHYLPREDNISOLONE SOD SUCC 40 MG/ML VIAL IV SCH ×3 (02:53→17:33)
[2016-11-27] MEDS: DILTIAZEM HCL 125 MG in DEXT 5% WATER 100 ML IV SCH ×2 (02:56→13:17)
[2016-11-27] MEDS: METOCLOPRAMIDE HCL 10MG/2ML VIAL IV SCH ×4 (05:51→23:18)
[2016-11-27] MEDS: METOPROLOL TARTRATE 5MG/5ML VIAL IV SCH ×4 (05:53→23:18)
[2016-11-27 06:47] LABS: HEMATOCRIT. 29.1 % (42.0-52.0); HEMOGLOBIN. 9.1 g/dL (14.0-18.0); MEAN PLATELET VOLUME 7.6 fl (7.4-10.4); PLATELET 555 x1000/uL (130-400); RED BLOOD CELL COUNT 3.51 mill/uL (4.7-6.1); RED CELL DISTRIBUTION WIDTH 16.1 % (11.6-14.6)
[2016-11-27] MEDS: BLOOD SUGAR DIAGNOSTIC STRIP TEST SCH ×4 (06:50→23:11)
[2016-11-27] MEDS: INSULIN LISPRO 100 UNITS/ML SUBCUT SCH ×4 (06:54→23:19)
[2016-11-27 08:55] LABS: PHOSPHORUS 2.9 mg/dL (2.5-4.9)
[2016-11-27] MEDS: BACITRACIN ZINC 15GM TUBE TOP SCH (08:55)
[2016-11-27] MEDS: PANTOPRAZOLE SODIUM 40 MG/VIAL IV SCH (08:56)
[2016-11-27] MEDS: ALLOPURINOL 300 MG TABLET PO SCH ×2 (08:56→17:32)
[2016-11-27] MEDS: LACTOBACILLUS GG CAPSULE PO SCH (08:56)
[2016-11-27] MEDS: SODIUM CHLORIDE 0.9% 1,000 ML IV SCH (09:28)
[2016-11-27] MEDS: BISACODYL 10MG SUPP PR SCH ×2 (09:31→23:11)
[2016-11-27] MEDS ORDERED: MAGNESIUM 4 G PREMIX 100 ML IV SCH (12:00)
[2016-11-27 14:15] LABS: PLATELET ESTIMATE INCREASED
[2016-11-27] MEDS: VANCOMYCIN 1250MG in DEXTROSE 5% WATER 250ML IV SCH (16:04)
[2016-11-27] MEDS: PIPERACILLIN/TAZ 3.375G PREMIX 50 ML IV SCH (17:41)
[2016-11-27] MEDS: TOTAL PARENTERAL NUTRITION 1,000 ML IV SCH (20:15)
[2016-11-28] VITALS (11 sets, daily range): BP systolic 131–153; BP diastolic 72–104
[2016-11-28] MEDS ORDERED: INSULIN DETEMIR UD 100 UNITS/ML SYR SUBCUT NR ×2 (00:30→13:00)
[2016-11-28] MEDS: PIPERACILLIN/TAZ 3.375G PREMIX 50 ML IV SCH ×3 (01:16→19:10)
[2016-11-28] MEDS: DILTIAZEM HCL 125 MG in DEXT 5% WATER 100 ML IV SCH ×3 (01:33→23:50)
[2016-11-28] MEDS: IPRATROPIUM/ALBUTEROL 0.5-3(2.5)MG/3ML NEB INH SCH ×4 (02:27→20:22)
[2016-11-28] MEDS: METOCLOPRAMIDE HCL 10MG/2ML VIAL IV SCH ×2 (05:37→11:35)
[2016-11-28] MEDS: METOPROLOL TARTRATE 5MG/5ML VIAL IV SCH ×3 (05:37→17:25)
[2016-11-28] MEDS: METHYLPREDNISOLONE SOD SUCC 40 MG/ML VIAL IV SCH ×2 (05:37→17:24)
[2016-11-28] MEDS: BLOOD SUGAR DIAGNOSTIC STRIP TEST SCH ×3 (05:42→17:05)
[2016-11-28 06:48] LABS: HEMATOCRIT. 29.6 % (42.0-52.0); HEMOGLOBIN. 9.3 g/dL (14.0-18.0); MEAN CORPUSCULAR VOLUME 83.1 fL (80.0-94.0); MEAN PLATELET VOLUME 7.5 fl (7.4-10.4); PLATELET 457 x1000/uL (130-400); RED BLOOD CELL COUNT 3.56 mill/uL (4.7-6.1); RED CELL DISTRIBUTION WIDTH 16.4 % (11.6-14.6)
[2016-11-28] MEDS ORDERED: INSULIN LISPRO 100 UNITS/ML SUBCUT NR ×2 (07:30→17:15)
[2016-11-28] MEDS: PANTOPRAZOLE SODIUM 40 MG/VIAL IV SCH (09:02)
[2016-11-28] MEDS: ALLOPURINOL 300 MG TABLET PO SCH ×2 (09:03→17:24)
[2016-11-28] MEDS: LACTOBACILLUS GG CAPSULE PO SCH (09:03)
[2016-11-28] MEDS: INSULIN LISPRO 100 UNITS/ML SUBCUT SCH ×3 (09:04→17:24)
[2016-11-28] MEDS: COLCHICINE 0.6MG TABLET PO SCH ×2 (09:06→21:39)
[2016-11-28] MEDS: BACITRACIN ZINC 15GM TUBE TOP SCH (09:14)
[2016-11-28] MEDS ORDERED: INSULIN DETEMIR UD 100 UNITS/ML SYR SUBCUT SCH ×2 (10:00→22:00)
[2016-11-28] MEDS: BISACODYL 10MG SUPP PR SCH ×3 (10:07→22:04)
[2016-11-28 10:27] LABS: NUCLEATED RED BLOOD CELLS 1 /100 WBC
[2016-11-28 10:28] LABS: PLATELET ESTIMATE SLIGHTLY INCREASED
[2016-11-28] MEDS: TOTAL PARENTERAL NUTRITION 1,000 ML IV SCH (10:28)
[2016-11-28] MEDS ORDERED: METOCLOPRAMIDE HCL 10MG/2ML VIAL IV SCH (14:00)
[2016-11-28] MEDS: VANCOMYCIN 1250MG in DEXTROSE 5% WATER 250ML IV SCH (16:58)
[2016-11-28] MEDS: FAT EMULSIONS 500 ML IV SCH (21:38)
[2016-11-29] VITALS (12 sets, daily range): BP systolic 122–161; BP diastolic 73–101
[2016-11-29] MEDS: TOTAL PARENTERAL NUTRITION 1,000 ML IV SCH ×2 (00:12→13:16)
[2016-11-29] MEDS: BLOOD SUGAR DIAGNOSTIC STRIP TEST SCH ×4 (00:53→17:25)
[2016-11-29] MEDS: METOPROLOL TARTRATE 5MG/5ML VIAL IV SCH ×4 (01:00→17:29)
[2016-11-29] MEDS: INSULIN LISPRO 100 UNITS/ML SUBCUT SCH ×4 (01:01→17:28)
[2016-11-29] MEDS: IPRATROPIUM/ALBUTEROL 0.5-3(2.5)MG/3ML NEB INH SCH ×4 (02:00→20:44)
[2016-11-29] MEDS: PIPERACILLIN/TAZ 3.375G PREMIX 50 ML IV SCH ×3 (02:55→18:00)
[2016-11-29] MEDS: METHYLPREDNISOLONE SOD SUCC 40 MG/ML VIAL IV SCH ×2 (07:26→17:29)
[2016-11-29 07:27] LABS: HEMATOCRIT. 29.5 % (42.0-52.0); HEMOGLOBIN. 10.4 g/dL (14.0-18.0); MEAN CORPUSCULAR HEMOGLOBIN 29.7 pg (28.0-32.0); MEAN CORPUSCULAR VOLUME 84.3 fL (80.0-94.0); MEAN PLATELET VOLUME 7.7 fl (7.4-10.4); PLATELET 415 x1000/uL (130-400); RED BLOOD CELL COUNT 3.51 mill/uL (4.7-6.1); RED CELL DISTRIBUTION WIDTH 16.9 % (11.6-14.6)
[2016-11-29] MEDS ORDERED: INSULIN LISPRO 100 UNITS/ML SUBCUT NR ×2 (07:45→11:30)
[2016-11-29] MEDS: LACTOBACILLUS GG CAPSULE PO SCH (08:13)
[2016-11-29] MEDS: ALLOPURINOL 300 MG TABLET PO SCH ×2 (08:13→16:26)
[2016-11-29] MEDS: PANTOPRAZOLE SODIUM 40 MG/VIAL IV SCH (08:13)
[2016-11-29] MEDS: COLCHICINE 0.6MG TABLET PO SCH ×2 (08:13→22:00)
[2016-11-29] MEDS: BACITRACIN ZINC 15GM TUBE TOP SCH (08:14)
[2016-11-29] MEDS: DILTIAZEM HCL 125 MG in DEXT 5% WATER 100 ML IV SCH ×2 (09:06→18:56)
[2016-11-29] MEDS ORDERED: INSULIN DETEMIR UD 100 UNITS/ML SYR SUBCUT SCH (10:00)
[2016-11-29] MEDS: INSULIN DETEMIR UD 100 UNITS/ML SYR SUBCUT SCH ×2 (11:34→22:02)
[2016-11-29 14:00] LABS: PLATELET ESTIMATE INCREASED
[2016-11-29] MEDS: VANCOMYCIN 1250MG in DEXTROSE 5% WATER 250ML IV SCH (14:57)
[2016-11-29] MEDS: DIGOXIN 500MCG/2ML AMP IV SCH (17:29)
[2016-11-29] MEDS: BISACODYL 10MG SUPP PR SCH (22:00)
[2016-11-30] VITALS (16 sets, daily range): BP systolic 135–170; BP diastolic 72–114
[2016-11-30] MEDS: BLOOD SUGAR DIAGNOSTIC STRIP TEST SCH ×4 (00:27→17:27)
[2016-11-30] MEDS: METOPROLOL TARTRATE 5MG/5ML VIAL IV SCH ×4 (00:39→17:11)
[2016-11-30] MEDS: INSULIN LISPRO 100 UNITS/ML SUBCUT SCH ×4 (00:41→17:50)
[2016-11-30] MEDS: IPRATROPIUM/ALBUTEROL 0.5-3(2.5)MG/3ML NEB INH SCH ×4 (00:56→21:11)
[2016-11-30] MEDS: PIPERACILLIN/TAZ 3.375G PREMIX 50 ML IV SCH ×3 (02:02→17:11)
[2016-11-30] MEDS: TOTAL PARENTERAL NUTRITION 1,000 ML IV SCH ×2 (02:03→14:57)
[2016-11-30] MEDS: DILTIAZEM HCL 125 MG in DEXT 5% WATER 100 ML IV SCH ×3 (02:39→18:10)
[2016-11-30] MEDS: PANTOPRAZOLE SODIUM 40 MG/VIAL IV SCH (08:53)
[2016-11-30] MEDS: METHYLPREDNISOLONE SOD SUCC 40 MG/ML VIAL IV SCH (08:53)
[2016-11-30] MEDS: ALLOPURINOL 300 MG TABLET PO SCH ×2 (08:54→17:01)
[2016-11-30] MEDS: COLCHICINE 0.6MG TABLET PO SCH ×2 (08:54→21:33)
[2016-11-30] MEDS: LACTOBACILLUS GG CAPSULE PO SCH (08:54)
[2016-11-30] MEDS: BISACODYL 10MG SUPP PR SCH ×2 (08:54→22:10)
[2016-11-30] MEDS: BACITRACIN ZINC 15GM TUBE TOP SCH (08:55)
[2016-11-30] MEDS: INSULIN DETEMIR UD 100 UNITS/ML SYR SUBCUT SCH ×2 (12:54→21:34)
[2016-11-30] MEDS: VANCOMYCIN 1250MG in DEXTROSE 5% WATER 250ML IV SCH (14:57)
[2016-11-30] MEDS: DIGOXIN 500MCG/2ML AMP IV SCH (17:12)
[2016-11-30] MEDS ORDERED: INSULIN LISPRO 100 UNITS/ML SUBCUT NR (17:57)
[2016-12-01] VITALS (10 sets, daily range): BP systolic 127–175; BP diastolic 73–99
[2016-12-01] MEDS: BLOOD SUGAR DIAGNOSTIC STRIP TEST SCH ×4 (00:30→17:28)
[2016-12-01] MEDS: METOPROLOL TARTRATE 5MG/5ML VIAL IV SCH ×4 (00:47→17:46)
[2016-12-01] MEDS: INSULIN LISPRO 100 UNITS/ML SUBCUT SCH ×4 (01:08→17:48)
[2016-12-01] MEDS ORDERED: INSULIN LISPRO 100 UNITS/ML SUBCUT NR (01:45)
[2016-12-01] MEDS: PIPERACILLIN/TAZ 3.375G PREMIX 50 ML IV SCH ×2 (01:54→18:27)
[2016-12-01] MEDS: IPRATROPIUM/ALBUTEROL 0.5-3(2.5)MG/3ML NEB INH SCH ×4 (02:00→20:22)
[2016-12-01] MEDS: TOTAL PARENTERAL NUTRITION 1,000 ML IV SCH ×3 (03:54→17:24)
[2016-12-01] MEDS: DILTIAZEM HCL 125 MG in DEXT 5% WATER 100 ML IV SCH ×2 (04:12→23:13)
[2016-12-01 07:23] LABS: HEMATOCRIT. 31.5 % (42.0-52.0); HEMOGLOBIN. 9.6 g/dL (14.0-18.0); MEAN CORPUSCULAR HEMOGLOBIN 25.6 pg (28.0-32.0); MEAN CORPUSCULAR VOLUME 84.3 fL (80.0-94.0); MEAN PLATELET VOLUME 8.5 fl (7.4-10.4); PLATELET 187 x1000/uL (130-400); RED BLOOD CELL COUNT 3.73 mill/uL (4.7-6.1); RED CELL DISTRIBUTION WIDTH 16.8 % (11.6-14.6)
[2016-12-01 07:49] LABS: PHOSPHORUS 2.9 mg/dL (2.5-4.9)
[2016-12-01 08:27] LABS: PLATELET ESTIMATE NORMAL
[2016-12-01] MEDS: COLCHICINE 0.6MG TABLET PO SCH ×2 (10:00→20:13)
[2016-12-01] MEDS: ALLOPURINOL 300 MG TABLET PO SCH ×2 (10:00→17:46)
[2016-12-01] MEDS: LACTOBACILLUS GG CAPSULE PO SCH (10:00)
[2016-12-01] MEDS: BISACODYL 10MG SUPP PR SCH ×2 (11:00→22:00)
[2016-12-01] MEDS ORDERED: DIATR MEGLU/DIATRIZOATE SOLN 30ML ONE (12:12)
[2016-12-01] MEDS: METHYLPREDNISOLONE SOD SUCC 40 MG/ML VIAL IV SCH (13:21)
[2016-12-01] MEDS: PANTOPRAZOLE SODIUM 40 MG/VIAL IV SCH (13:22)
[2016-12-01] MEDS: INSULIN DETEMIR UD 100 UNITS/ML SYR SUBCUT SCH ×2 (13:28→22:30)
[2016-12-01] MEDS: VANCOMYCIN 1250MG in DEXTROSE 5% WATER 250ML IV SCH (15:13)
[2016-12-01] MEDS: DIGOXIN 500MCG/2ML AMP IV SCH (18:27)
[2016-12-02] VITALS (12 sets, daily range): BP systolic 117–165; BP diastolic 67–88
[2016-12-02] MEDS: INSULIN LISPRO 100 UNITS/ML SUBCUT SCH ×4 (00:12→17:45)
[2016-12-02] MEDS: METOPROLOL TARTRATE 5MG/5ML VIAL IV SCH ×2 (00:12→05:50)
[2016-12-02] MEDS: IPRATROPIUM/ALBUTEROL 0.5-3(2.5)MG/3ML NEB INH SCH ×4 (01:26→20:40)
[2016-12-02] MEDS: PIPERACILLIN/TAZ 3.375G PREMIX 50 ML IV SCH ×3 (02:35→17:45)
[2016-12-02] MEDS: BLOOD SUGAR DIAGNOSTIC STRIP TEST SCH ×4 (05:50→17:41)
[2016-12-02] MEDS: BACITRACIN ZINC 15GM TUBE TOP SCH ×2 (05:51→10:41)
[2016-12-02] MEDS: TOTAL PARENTERAL NUTRITION 1,000 ML IV SCH ×2 (06:19→09:16)
[2016-12-02 07:19] LABS: HEMATOCRIT. 30.8 % (42.0-52.0); HEMOGLOBIN. 9.4 g/dL (14.0-18.0); MEAN CORPUSCULAR HEMOGLOBIN 25.7 pg (28.0-32.0); MEAN PLATELET VOLUME 8.5 fl (7.4-10.4); PLATELET 154 x1000/uL (130-400); RED BLOOD CELL COUNT 3.66 mill/uL (4.7-6.1); RED CELL DISTRIBUTION WIDTH 16.6 % (11.6-14.6)
[2016-12-02 07:30] LABS: CARBON DIOXIDE 29 mEq/L (21-32); CHLORIDE 107 mEq/L (98-107)
[2016-12-02] MEDS: METHYLPREDNISOLONE SOD SUCC 40 MG/ML VIAL IV SCH (09:18)
[2016-12-02] MEDS: PANTOPRAZOLE SODIUM 40 MG/VIAL IV SCH (09:18)
[2016-12-02] MEDS: COLCHICINE 0.6MG TABLET PO SCH ×2 (09:21→20:51)
[2016-12-02] MEDS: LACTOBACILLUS GG CAPSULE PO SCH (09:21)
[2016-12-02] MEDS: ALLOPURINOL 300 MG TABLET PO SCH ×2 (09:21→17:45)
[2016-12-02] MEDS: INSULIN DETEMIR UD 100 UNITS/ML SYR SUBCUT SCH ×2 (09:23→21:10)
[2016-12-02] MEDS: BISACODYL 10MG SUPP PR SCH ×2 (09:23→20:40)
[2016-12-02 12:28] LABS: PLATELET ESTIMATE NORMAL
[2016-12-02] MEDS: DILTIAZEM HCL 60MG TABLET PO SCH ×2 (12:37→17:47)
[2016-12-02] MEDS: VANCOMYCIN 1250MG in DEXTROSE 5% WATER 250ML IV SCH (15:11)
[2016-12-02] MEDS: FAT EMULSIONS 500 ML IV SCH (20:51)
[2016-12-03] VITALS (21 sets, daily range): BP systolic 86–146; BP diastolic 38–83
[2016-12-03] MEDS: DILTIAZEM HCL 60MG TABLET PO SCH ×2 (00:08→06:33)
[2016-12-03] MEDS: ACETAMINOPHEN 325MG TABLET PO PRN ×3 (00:08→19:43)
[2016-12-03] MEDS: INSULIN LISPRO 100 UNITS/ML SUBCUT SCH ×5 (00:09→23:38)
[2016-12-03] MEDS: PIPERACILLIN/TAZ 3.375G PREMIX 50 ML IV SCH ×3 (01:05→17:24)
[2016-12-03] MEDS: IPRATROPIUM/ALBUTEROL 0.5-3(2.5)MG/3ML NEB INH SCH ×4 (01:26→20:50)
[2016-12-03] MEDS: TOTAL PARENTERAL NUTRITION 1,000 ML IV SCH (02:07)
[2016-12-03] MEDS ORDERED: DILTIAZEM HCL 5MG/ML 5ML VIAL IV NR (03:30)
[2016-12-03] MEDS ORDERED: DILTIAZEM HCL 125 MG in DEXT 5% WATER 100 ML IV PRN (03:30)
[2016-12-03] MEDS: ONDANSETRON HCL 4MG/2ML VIAL IV PRN ×2 (05:09→23:14)
[2016-12-03] MEDS: BLOOD SUGAR DIAGNOSTIC STRIP TEST SCH ×5 (05:09→23:38)
[2016-12-03 06:16] LABS: HEMOGLOBIN. 10.6 g/dL (14.0-18.0); MEAN CORPUSCULAR HEMOGLOBIN 29.3 pg (28.0-32.0); MEAN CORPUSCULAR VOLUME 83.4 fL (80.0-94.0); MEAN PLATELET VOLUME 9.2 fl (7.4-10.4); PLATELET 134 x1000/uL (130-400); RED CELL DISTRIBUTION WIDTH 16.5 % (11.6-14.6)
[2016-12-03 06:31] LABS: PHOSPHORUS 2.7 mg/dL (2.5-4.9)
[2016-12-03] MEDS ORDERED: MAGNESIUM 2 G PREMIX 50 ML IV SCH (09:00)
[2016-12-03] MEDS: BISACODYL 10MG SUPP PR SCH ×2 (09:10→21:50)
[2016-12-03] MEDS: METHYLPREDNISOLONE SOD SUCC 40 MG/ML VIAL IV SCH (09:43)
[2016-12-03] MEDS: PANTOPRAZOLE SODIUM 40 MG/VIAL IV SCH (09:43)
[2016-12-03] MEDS: LACTOBACILLUS GG CAPSULE PO SCH (09:43)
[2016-12-03] MEDS: COLCHICINE 0.6MG TABLET PO SCH ×2 (09:43→21:15)
[2016-12-03] MEDS: ALLOPURINOL 300 MG TABLET PO SCH ×2 (09:43→17:23)
[2016-12-03] MEDS: POTASSIUM CHLORIDE 20MEQ TABLET SR PO SCH (09:43)
[2016-12-03] MEDS: BACITRACIN ZINC 15GM TUBE TOP SCH (09:44)
[2016-12-03] MEDS: INSULIN DETEMIR UD 100 UNITS/ML SYR SUBCUT SCH ×2 (09:51→21:15)
[2016-12-03 10:07] LABS: COMPLEMENT C3 80 mg/dL (82-167)
[2016-12-03 11:12] LABS: PLATELET ESTIMATE NORMAL
[2016-12-03] MEDS: DILTIAZEM HCL 90MG TABLET PO SCH ×2 (12:21→17:24)
[2016-12-03] MEDS: METOPROLOL TARTRATE 25MG TABLET PO SCH ×2 (12:22→21:49)
[2016-12-03 13:09] LABS: ANTI-MYELOPEROXIDASE AB < 9.0 U/mL (0.0-9.0); ANTI-PROTEINASE 3 ABS < 3.5 U/mL (0.0-3.5)
[2016-12-03] MEDS: VANCOMYCIN 1250MG in DEXTROSE 5% WATER 250ML IV SCH (14:57)
[2016-12-03 15:07] LABS: ATYPICAL P-ANCA <1:20 titer (Neg:<1:20); CYTOPLASMIC C-ANCA <1:20 titer (Neg:<1:20); PERINUCLEAR P-ANCA <1:20 titer (Neg:<1:20)
[2016-12-03 17:20] LABS: CLARITY URINE TURBID (CLEAR); COLOR URINE ORANGE (YELLOW); GLUCOSE URINE NEGATIVE (NEGATIVE); KETONES URINE NEGATIVE (NEGATIVE); LEUKOCYTE ESTERASE URINE 2+ (NEGATIVE); NITRITE URINE NEGATIVE (NEGATIVE); OCCULT BLOOD URINE 3+ (NEGATIVE); PROTEIN URINE 3+ (NEGATIVE); SPECIFIC GRAVITY URINE 1.029 (1.005-1.030); UROBILINOGEN URINE 0.2 E.U./dL (0.2-1.0)
[2016-12-03 19:12] LABS: ANA IFA Negative (.)
[2016-12-03] MEDS ORDERED: MAGNESIUM/ALUMINUM HYDROXIDE/SIMETHICONE 30ML UDC PO PRN (21:30)
[2016-12-04] VITALS (19 sets, daily range): BP systolic 115–154; BP diastolic 63–84
[2016-12-04] MEDS: DILTIAZEM HCL 90MG TABLET PO SCH ×5 (01:05→23:58)
[2016-12-04] MEDS: PIPERACILLIN/TAZ 3.375G PREMIX 50 ML IV SCH ×3 (01:05→17:20)
[2016-12-04] MEDS: IPRATROPIUM/ALBUTEROL 0.5-3(2.5)MG/3ML NEB INH SCH ×3 (02:39→20:03)
[2016-12-04] MEDS: INSULIN LISPRO 100 UNITS/ML SUBCUT SCH ×3 (06:00→16:39)
[2016-12-04] MEDS: BLOOD SUGAR DIAGNOSTIC STRIP TEST SCH ×3 (06:24→16:39)
[2016-12-04] MEDS: METRONIDAZOLE 500MG TABLET PO SCH ×3 (06:25→22:20)
[2016-12-04] MEDS: DEXTROSE 50% WATER 50ML SYRINGE IV PRN ×2 (06:39→11:18)
[2016-12-04 06:54] LABS: HEMATOCRIT. 33.6 % (42.0-52.0); HEMOGLOBIN. 10.6 g/dL (14.0-18.0); MEAN CORPUSCULAR HEMOGLOBIN 26.2 pg (28.0-32.0); MEAN CORPUSCULAR VOLUME 83.1 fL (80.0-94.0); MEAN PLATELET VOLUME 9.4 fl (7.4-10.4); PLATELET 111 x1000/uL (130-400); RED BLOOD CELL COUNT 4.04 mill/uL (4.7-6.1)
[2016-12-04 07:17] LABS: PHOSPHORUS 5.8 mg/dL (2.5-4.9)
[2016-12-04] MEDS: COLCHICINE 0.6MG TABLET PO SCH (07:50)
[2016-12-04] MEDS: PANTOPRAZOLE SODIUM 40 MG/VIAL IV SCH (08:03)
[2016-12-04] MEDS: POTASSIUM CHLORIDE 20MEQ TABLET SR PO SCH (08:03)
[2016-12-04] MEDS: ALLOPURINOL 300 MG TABLET PO SCH ×2 (08:03→16:37)
[2016-12-04] MEDS: LACTOBACILLUS GG CAPSULE PO SCH (08:03)
[2016-12-04] MEDS: METOPROLOL TARTRATE 25MG TABLET PO SCH ×2 (08:04→22:20)
[2016-12-04] MEDS: ONDANSETRON HCL 4MG/2ML VIAL IV PRN (08:15)
[2016-12-04] MEDS ORDERED: PREDNISONE 10MG TABLET PO SCH (09:00)
[2016-12-04] MEDS: INSULIN DETEMIR UD 100 UNITS/ML SYR SUBCUT SCH ×3 (10:00→22:21)
[2016-12-04] MEDS: DEXT 5%/0.45% NACL 1000ML 1,000 ML IV SCH ×2 (10:02→23:54)
[2016-12-04] MEDS: BACITRACIN ZINC 15GM TUBE TOP SCH (10:03)
[2016-12-04] MEDS ORDERED: METOCLOPRAMIDE HCL 10MG/2ML VIAL IV SCH (12:00)
[2016-12-04 14:01] LABS: PLATELET ESTIMATE SLIGHTLY DECREASED
[2016-12-04] MEDS: FLUCONAZOLE 200 MG/100ML BAG 100 ML IV SCH (16:37)
[2016-12-04] MEDS: METOCLOPRAMIDE HCL 10MG/2ML VIAL IV PRN (18:15)
[2016-12-05] VITALS (16 sets, daily range): BP systolic 105–136; BP diastolic 66–77
[2016-12-05] MEDS: PIPERACILLIN/TAZ 3.375G PREMIX 50 ML IV SCH ×3 (01:05→18:05)
[2016-12-05] MEDS: INSULIN LISPRO 100 UNITS/ML SUBCUT SCH ×4 (01:08→18:04)
[2016-12-05] MEDS: BLOOD SUGAR DIAGNOSTIC STRIP TEST SCH ×4 (01:08→18:05)
[2016-12-05] MEDS: IPRATROPIUM/ALBUTEROL 0.5-3(2.5)MG/3ML NEB INH SCH ×4 (02:34→21:15)
[2016-12-05] MEDS: METHYLPREDNISOLONE SOD SUCC 40 MG/ML VIAL IV SCH ×2 (06:18→17:56)
[2016-12-05] MEDS: METRONIDAZOLE 500MG TABLET PO SCH ×3 (06:20→22:00)
[2016-12-05] MEDS: DILTIAZEM HCL 90MG TABLET PO SCH ×3 (06:21→17:56)
[2016-12-05 06:44] LABS: HEMATOCRIT. 29.4 % (42.0-52.0); HEMOGLOBIN. 9.6 g/dL (14.0-18.0); MEAN CORPUSCULAR HEMOGLOBIN 26.6 pg (28.0-32.0); MEAN CORPUSCULAR VOLUME 81.9 fL (80.0-94.0); MEAN PLATELET VOLUME 8.8 fl (7.4-10.4); PLATELET 106 x1000/uL (130-400); RED BLOOD CELL COUNT 3.59 mill/uL (4.7-6.1); RED CELL DISTRIBUTION WIDTH 16.9 % (11.6-14.6)
[2016-12-05 07:14] LABS: PHOSPHORUS 4.8 mg/dL (2.5-4.9)
[2016-12-05] MEDS: LACTOBACILLUS GG CAPSULE PO SCH (09:52)
[2016-12-05] MEDS: ALLOPURINOL 300 MG TABLET PO SCH ×2 (09:53→17:56)
[2016-12-05] MEDS: METOPROLOL TARTRATE 25MG TABLET PO SCH ×2 (09:53→22:00)
[2016-12-05] MEDS: COLCHICINE 0.6MG TABLET PO SCH (09:53)
[2016-12-05] MEDS: POTASSIUM CHLORIDE 20MEQ TABLET SR PO SCH (09:53)
[2016-12-05] MEDS: INSULIN DETEMIR UD 100 UNITS/ML SYR SUBCUT SCH ×2 (10:00→22:20)
[2016-12-05] MEDS: METOCLOPRAMIDE HCL 10MG/2ML VIAL IV PRN (11:02)
[2016-12-05] MEDS: PANTOPRAZOLE SODIUM 40 MG/VIAL IV SCH (11:02)
[2016-12-05] MEDS: TETRACAINE/BENZOCAINE/BUTAMBEN 20 GM SPRAY MM PRN (11:04)
[2016-12-05] MEDS: BACITRACIN ZINC 15GM TUBE TOP SCH (11:05)
[2016-12-05] MEDS: DEXT 5%/0.45% NACL 1000ML 1,000 ML IV SCH ×2 (11:13→14:30)
[2016-12-05 12:27] LABS: PLATELET ESTIMATE SLIGHTLY DECREASED
[2016-12-05] MEDS: FLUCONAZOLE 200 MG/100ML BAG 100 ML IV SCH (15:36)
[2016-12-05] MEDS: METOCLOPRAMIDE HCL 10MG/2ML VIAL IV SCH ×2 (18:05→23:21)
[2016-12-05] MEDS: TOTAL PARENTERAL NUTRITION 1,000 ML IV SCH (20:42)
[2016-12-06] VITALS (12 sets, daily range): BP systolic 111–132; BP diastolic 67–80
[2016-12-06] MEDS: DILTIAZEM HCL 90MG TABLET PO SCH ×4 (00:06→17:31)
[2016-12-06] MEDS: INSULIN LISPRO 100 UNITS/ML SUBCUT SCH ×4 (00:22→17:17)
[2016-12-06] MEDS: BLOOD SUGAR DIAGNOSTIC STRIP TEST SCH ×4 (00:22→17:21)
[2016-12-06] MEDS: IPRATROPIUM/ALBUTEROL 0.5-3(2.5)MG/3ML NEB INH SCH ×4 (01:56→19:55)
[2016-12-06] MEDS: PIPERACILLIN/TAZ 3.375G PREMIX 50 ML IV SCH ×3 (02:08→17:25)
[2016-12-06] MEDS: METOCLOPRAMIDE HCL 10MG/2ML VIAL IV SCH ×4 (05:04→21:57)
[2016-12-06] MEDS: METHYLPREDNISOLONE SOD SUCC 40 MG/ML VIAL IV SCH ×2 (06:26→17:31)
[2016-12-06] MEDS: COLCHICINE 0.6MG TABLET PO SCH (06:27)
[2016-12-06] MEDS: METRONIDAZOLE 500MG TABLET PO SCH ×3 (06:27→20:44)
[2016-12-06 06:30] LABS: MEAN CORPUSCULAR HEMOGLOBIN 26.7 pg (28.0-32.0); MEAN CORPUSCULAR VOLUME 82.6 fL (80.0-94.0); MEAN PLATELET VOLUME 8.7 fl (7.4-10.4); PLATELET 133 x1000/uL (130-400); RED BLOOD CELL COUNT 3.39 mill/uL (4.7-6.1); RED CELL DISTRIBUTION WIDTH 17.5 % (11.6-14.6)
[2016-12-06] MEDS: POTASSIUM CHLORIDE 20MEQ TABLET SR PO SCH (09:02)
[2016-12-06] MEDS: PANTOPRAZOLE SODIUM 40 MG/VIAL IV SCH (09:02)
[2016-12-06] MEDS: LACTOBACILLUS GG CAPSULE PO SCH (09:03)
[2016-12-06] MEDS: BACITRACIN ZINC 15GM TUBE TOP SCH (09:03)
[2016-12-06] MEDS: ALLOPURINOL 300 MG TABLET PO SCH ×2 (09:03→17:16)
[2016-12-06] MEDS: METOPROLOL TARTRATE 25MG TABLET PO SCH ×2 (09:03→20:46)
[2016-12-06] MEDS: INSULIN DETEMIR UD 100 UNITS/ML SYR SUBCUT SCH ×2 (09:04→21:54)
[2016-12-06] MEDS: TOTAL PARENTERAL NUTRITION 1,000 ML IV SCH ×2 (17:00→20:44)
[2016-12-06] MEDS: FLUCONAZOLE 200 MG/100ML BAG 100 ML IV SCH (17:15)
[2016-12-06] MEDS ORDERED: FAT EMULSIONS 500 ML IV SCH (21:00)
[2016-12-06 22:28] LABS: PLATELET ESTIMATE SLIGHTLY DECREASED
[2016-12-07] VITALS (16 sets, daily range): BP systolic 75–152; BP diastolic 57–79
[2016-12-07] MEDS: DILTIAZEM HCL 90MG TABLET PO SCH ×4 (00:16→17:59)
[2016-12-07] MEDS: INSULIN LISPRO 100 UNITS/ML SUBCUT SCH ×4 (00:17→17:58)
[2016-12-07] MEDS: BLOOD SUGAR DIAGNOSTIC STRIP TEST SCH ×4 (00:22→16:54)
[2016-12-07] MEDS: IPRATROPIUM/ALBUTEROL 0.5-3(2.5)MG/3ML NEB INH SCH ×4 (01:22→21:46)
[2016-12-07] MEDS: PIPERACILLIN/TAZ 3.375G PREMIX 50 ML IV SCH ×3 (01:32→17:59)
[2016-12-07] MEDS: METHYLPREDNISOLONE SOD SUCC 40 MG/ML VIAL IV SCH ×2 (06:10→18:00)
[2016-12-07] MEDS: METRONIDAZOLE 500MG TABLET PO SCH ×3 (06:11→21:26)
[2016-12-07] MEDS: METOCLOPRAMIDE HCL 10MG/2ML VIAL IV SCH ×4 (06:12→23:16)
[2016-12-07] MEDS: METOPROLOL TARTRATE 25MG TABLET PO SCH ×2 (08:31→21:26)
[2016-12-07] MEDS: LACTOBACILLUS GG CAPSULE PO SCH (08:31)
[2016-12-07] MEDS: COLCHICINE 0.6MG TABLET PO SCH (08:32)
[2016-12-07] MEDS: PANTOPRAZOLE SODIUM 40 MG/VIAL IV SCH (08:38)
[2016-12-07] MEDS: DOCUSATE SODIUM 100MG CAPSULE PO PRN (08:39)
[2016-12-07] MEDS: ALLOPURINOL 300 MG TABLET PO SCH ×2 (08:41→16:40)
[2016-12-07 08:52] LABS: HEMATOCRIT. 29.3 % (42.0-52.0); HEMOGLOBIN. 9.2 g/dL (14.0-18.0); MEAN CORPUSCULAR VOLUME 82.9 fL (80.0-94.0); MEAN PLATELET VOLUME 8.2 fl (7.4-10.4); PLATELET 151 x1000/uL (130-400); RED BLOOD CELL COUNT 3.53 mill/uL (4.7-6.1); RED CELL DISTRIBUTION WIDTH 17.2 % (11.6-14.6)
[2016-12-07] MEDS: BACITRACIN ZINC 15GM TUBE TOP SCH (09:00)
[2016-12-07 09:12] LABS: PHOSPHORUS 1.7 mg/dL (2.5-4.9)
[2016-12-07] MEDS: INSULIN DETEMIR UD 100 UNITS/ML SYR SUBCUT SCH ×2 (10:12→21:27)
[2016-12-07 14:04] LABS: PLATELET ESTIMATE NORMAL
[2016-12-07] MEDS: FLUCONAZOLE 200 MG/100ML BAG 100 ML IV SCH (16:36)
[2016-12-07] MEDS: TOTAL PARENTERAL NUTRITION 1,000 ML IV SCH ×2 (19:11→19:36)
[2016-12-08] VITALS (12 sets, daily range): BP systolic 112–141; BP diastolic 56–80
[2016-12-08] MEDS: DILTIAZEM HCL 90MG TABLET PO SCH ×4 (00:18→17:57)
[2016-12-08] MEDS: BLOOD SUGAR DIAGNOSTIC STRIP TEST SCH ×4 (00:19→17:51)
[2016-12-08] MEDS: INSULIN LISPRO 100 UNITS/ML SUBCUT SCH ×4 (00:19→17:56)
[2016-12-08] MEDS: PIPERACILLIN/TAZ 3.375G PREMIX 50 ML IV SCH ×3 (02:24→18:51)
[2016-12-08] MEDS: IPRATROPIUM/ALBUTEROL 0.5-3(2.5)MG/3ML NEB INH SCH ×4 (02:24→20:19)
[2016-12-08] MEDS: METOCLOPRAMIDE HCL 10MG/2ML VIAL IV SCH ×3 (05:05→17:12)
[2016-12-08] MEDS: METRONIDAZOLE 500MG TABLET PO SCH ×3 (06:21→21:27)
[2016-12-08] MEDS: METHYLPREDNISOLONE SOD SUCC 40 MG/ML VIAL IV SCH ×2 (06:21→17:56)
[2016-12-08 07:06] LABS: HEMATOCRIT. 28.1 % (42.0-52.0); HEMOGLOBIN. 9.2 g/dL (14.0-18.0); MEAN CORPUSCULAR VOLUME 82.2 fL (80.0-94.0); MEAN PLATELET VOLUME 8.8 fl (7.4-10.4); PLATELET 121 x1000/uL (130-400); RED BLOOD CELL COUNT 3.42 mill/uL (4.7-6.1); RED CELL DISTRIBUTION WIDTH 17.7 % (11.6-14.6)
[2016-12-08 07:39] LABS: CHLORIDE 108 mEq/L (98-107)
[2016-12-08 07:50] LABS: CARBON DIOXIDE 21 mEq/L (21-32); PHOSPHORUS 2.4 mg/dL (2.5-4.9)
[2016-12-08] MEDS: COLCHICINE 0.6MG TABLET PO SCH (08:54)
[2016-12-08] MEDS: ALLOPURINOL 300 MG TABLET PO SCH ×2 (08:54→17:12)
[2016-12-08] MEDS: LACTOBACILLUS GG CAPSULE PO SCH (08:54)
[2016-12-08] MEDS: METOPROLOL TARTRATE 25MG TABLET PO SCH ×2 (08:54→21:27)
[2016-12-08] MEDS: PANTOPRAZOLE SODIUM 40 MG/VIAL IV SCH (08:54)
[2016-12-08] MEDS: BACITRACIN ZINC 15GM TUBE TOP SCH (08:56)
[2016-12-08] MEDS: INSULIN DETEMIR UD 100 UNITS/ML SYR SUBCUT SCH ×2 (10:15→21:28)
[2016-12-08] MEDS: TOTAL PARENTERAL NUTRITION 1,000 ML IV SCH (15:54)
[2016-12-08] MEDS: FLUCONAZOLE 200 MG/100ML BAG 100 ML IV SCH (17:12)
[2016-12-08] MEDS ORDERED: PREDNISONE 10MG TABLET PO SCH (21:00)
[2016-12-08 21:57] LABS: PLATELET ESTIMATE SLIGHTLY DECREASED
[2016-12-09] VITALS (12 sets, daily range): BP systolic 115–141; BP diastolic 61–84
[2016-12-09] MEDS: BLOOD SUGAR DIAGNOSTIC STRIP TEST SCH ×5 (00:39→23:17)
[2016-12-09] MEDS: METOCLOPRAMIDE HCL 10MG/2ML VIAL IV SCH ×5 (00:39→23:22)
[2016-12-09] MEDS: DILTIAZEM HCL 90MG TABLET PO SCH ×5 (00:39→23:23)
[2016-12-09] MEDS: INSULIN LISPRO 100 UNITS/ML SUBCUT SCH ×5 (00:40→23:24)
[2016-12-09] MEDS: IPRATROPIUM/ALBUTEROL 0.5-3(2.5)MG/3ML NEB INH SCH ×3 (01:52→21:23)
[2016-12-09] MEDS: PIPERACILLIN/TAZ 3.375G PREMIX 50 ML IV SCH ×3 (02:09→17:23)
[2016-12-09] MEDS: METRONIDAZOLE 500MG TABLET PO SCH ×3 (06:30→21:02)
[2016-12-09 06:45] LABS: INR 1.1; PARTIAL THROMBOPLASTIN TIME 29.7 sec (23.4-31.0); PROTHROMBIN TIME 11.8 sec (9.4-11.6)
[2016-12-09 06:59] LABS: HEMATOCRIT. 27.1 % (42.0-52.0); HEMOGLOBIN. 8.8 g/dL (14.0-18.0); MEAN CORPUSCULAR HEMOGLOBIN 26.8 pg (28.0-32.0); MEAN CORPUSCULAR VOLUME 82.6 fL (80.0-94.0); PLATELET 123 x1000/uL (130-400); RED BLOOD CELL COUNT 3.28 mill/uL (4.7-6.1); RED CELL DISTRIBUTION WIDTH 17.8 % (11.6-14.6)
[2016-12-09 07:17] LABS: PHOSPHORUS 1.5 mg/dL (2.5-4.9)
[2016-12-09] MEDS: PANTOPRAZOLE SODIUM 40 MG/VIAL IV SCH (08:53)
[2016-12-09] MEDS: ALLOPURINOL 300 MG TABLET PO SCH ×2 (08:53→17:24)
[2016-12-09] MEDS: LACTOBACILLUS GG CAPSULE PO SCH (08:54)
[2016-12-09] MEDS: METOPROLOL TARTRATE 25MG TABLET PO SCH ×2 (08:54→21:02)
[2016-12-09] MEDS: COLCHICINE 0.6MG TABLET PO SCH (08:54)
[2016-12-09] MEDS: BACITRACIN ZINC 15GM TUBE TOP SCH (08:54)
[2016-12-09] MEDS: INSULIN DETEMIR UD 100 UNITS/ML SYR SUBCUT SCH ×2 (10:37→21:40)
[2016-12-09] MEDS: TOTAL PARENTERAL NUTRITION 1,000 ML IV SCH (12:01)
[2016-12-09] MEDS: FLUCONAZOLE 200 MG/100ML BAG 100 ML IV SCH (15:53)
[2016-12-09 22:02] LABS: PLATELET ESTIMATE SLIGHTLY DECREASED
[2016-12-10] VITALS (14 sets, daily range): BP systolic 101–152; BP diastolic 53–89
[2016-12-10] MEDS: IPRATROPIUM/ALBUTEROL 0.5-3(2.5)MG/3ML NEB INH SCH ×4 (02:02→21:14)
[2016-12-10] MEDS: METOCLOPRAMIDE HCL 10MG/2ML VIAL IV SCH ×4 (04:39→23:11)
[2016-12-10] MEDS: BACITRACIN ZINC 15GM TUBE TOP SCH (04:53)
[2016-12-10] MEDS: BLOOD SUGAR DIAGNOSTIC STRIP TEST SCH ×4 (06:00→23:12)
[2016-12-10] MEDS: METRONIDAZOLE 500MG TABLET PO SCH ×3 (06:05→21:27)
[2016-12-10] MEDS: INSULIN LISPRO 100 UNITS/ML SUBCUT SCH ×4 (06:29→23:16)
[2016-12-10] MEDS: COLCHICINE 0.6MG TABLET PO SCH (06:29)
[2016-12-10] MEDS: DILTIAZEM HCL 90MG TABLET PO SCH (06:29)
[2016-12-10] MEDS: TOTAL PARENTERAL NUTRITION 1,000 ML IV SCH (06:51)
[2016-12-10] MEDS: ACETAMINOPHEN 325MG TABLET PO PRN ×3 (06:55→23:11)
[2016-12-10 07:13] LABS: CARBON DIOXIDE 23 mEq/L (21-32); CHLORIDE 108 mEq/L (98-107)
[2016-12-10] MEDS: METOPROLOL TARTRATE 25MG TABLET PO SCH ×2 (09:00→21:29)
[2016-12-10 09:17] LABS: HEMATOCRIT. 26.5 % (42.0-52.0); HEMOGLOBIN. 8.6 g/dL (14.0-18.0); MEAN CORPUSCULAR VOLUME 82.9 fL (80.0-94.0); MEAN PLATELET VOLUME 8.9 fl (7.4-10.4); PLATELET 95 x1000/uL (130-400); RED CELL DISTRIBUTION WIDTH 18.2 % (11.6-14.6)
[2016-12-10] MEDS: INSULIN DETEMIR UD 100 UNITS/ML SYR SUBCUT SCH ×2 (09:28→21:33)
[2016-12-10] MEDS: PANTOPRAZOLE SODIUM 40 MG/VIAL IV SCH (09:29)
[2016-12-10] MEDS: LACTOBACILLUS GG CAPSULE PO SCH (09:29)
[2016-12-10] MEDS: ALLOPURINOL 300 MG TABLET PO SCH ×2 (09:29→16:26)
[2016-12-10] MEDS: DILTIAZEM HCL 60MG TABLET PO SCH ×3 (11:52→23:12)
[2016-12-10 13:46] LABS: PLATELET ESTIMATE SLIGHTLY DECREASED
[2016-12-10] MEDS: PIPERACILLIN/TAZ 3.375G PREMIX 50 ML IV SCH ×2 (15:18→21:33)
[2016-12-10] MEDS: FLUCONAZOLE 200 MG/100ML BAG 100 ML IV SCH (16:28)
[2016-12-11] VITALS (14 sets, daily range): BP systolic 92–146; BP diastolic 57–86
[2016-12-11] MEDS: IPRATROPIUM/ALBUTEROL 0.5-3(2.5)MG/3ML NEB INH SCH ×4 (00:19→21:42)
[2016-12-11] MEDS: METOCLOPRAMIDE HCL 10MG/2ML VIAL IV SCH ×4 (04:25→22:25)
[2016-12-11] MEDS: TOTAL PARENTERAL NUTRITION 1,000 ML IV SCH (04:26)
[2016-12-11] MEDS: INSULIN LISPRO 100 UNITS/ML SUBCUT SCH ×4 (06:00→21:00)
[2016-12-11] MEDS: METRONIDAZOLE 500MG TABLET PO SCH (06:00)
[2016-12-11] MEDS: BLOOD SUGAR DIAGNOSTIC STRIP TEST SCH ×4 (06:56→21:47)
[2016-12-11] MEDS: PIPERACILLIN/TAZ 3.375G PREMIX 50 ML IV SCH (07:01)
[2016-12-11] MEDS: DILTIAZEM HCL 60MG TABLET PO SCH ×3 (07:02→18:25)
[2016-12-11] MEDS ORDERED: METRONIDAZOLE 500MG TABLET PO SCH (07:03)
[2016-12-11] MEDS: COLCHICINE 0.6MG TABLET PO SCH (07:28)
[2016-12-11 09:10] LABS: HEMATOCRIT. 28.5 % (42.0-52.0); HEMOGLOBIN. 9.2 g/dL (14.0-18.0); MEAN CORPUSCULAR HEMOGLOBIN 26.9 pg (28.0-32.0); MEAN CORPUSCULAR VOLUME 83.2 fL (80.0-94.0); MEAN PLATELET VOLUME 8.4 fl (7.4-10.4); PLATELET 90 x1000/uL (130-400); RED BLOOD CELL COUNT 3.43 mill/uL (4.7-6.1)
[2016-12-11 09:20] LABS: CARBON DIOXIDE 23 mEq/L (21-32); CHLORIDE 111 mEq/L (98-107)
[2016-12-11] MEDS: BACITRACIN ZINC 15GM TUBE TOP SCH (09:45)
[2016-12-11] MEDS: PANTOPRAZOLE SODIUM 40 MG/VIAL IV SCH (09:45)
[2016-12-11] MEDS: LACTOBACILLUS GG CAPSULE PO SCH (09:45)
[2016-12-11] MEDS: DOCUSATE SODIUM 100MG CAPSULE PO PRN (09:45)
[2016-12-11] MEDS: ALLOPURINOL 300 MG TABLET PO SCH ×2 (09:45→16:56)
[2016-12-11] MEDS: METOPROLOL TARTRATE 25MG TABLET PO SCH ×2 (09:49→21:49)
[2016-12-11] MEDS: INSULIN DETEMIR UD 100 UNITS/ML SYR SUBCUT SCH ×2 (09:56→21:48)
[2016-12-11 12:13] LABS: PLATELET ESTIMATE DECREASED
[2016-12-11] MEDS ORDERED: VANCOMYCIN 1 G PREMIX 200 ML IV NR (17:00)
[2016-12-11] MEDS: ACETAMINOPHEN 325MG TABLET PO PRN (19:09)
[2016-12-11] MEDS ORDERED: LIDOCAINE HCL 1% 20ML VIAL (Pyxis) INJ INFIL SCH (19:56)
[2016-12-11] MEDS ORDERED: METHYLPREDNISOLONE ACETATE 40MG/ML VIAL IM SCH (19:56)
[2016-12-12] VITALS (11 sets, daily range): BP systolic 109–143; BP diastolic 69–90
[2016-12-12] MEDS: DILTIAZEM HCL 60MG TABLET PO SCH ×4 (00:05→17:23)
[2016-12-12] MEDS: IPRATROPIUM/ALBUTEROL 0.5-3(2.5)MG/3ML NEB INH SCH ×3 (02:41→15:10)
[2016-12-12] MEDS: METOCLOPRAMIDE HCL 10MG/2ML VIAL IV SCH ×3 (05:10→17:23)
[2016-12-12] MEDS: BLOOD SUGAR DIAGNOSTIC STRIP TEST SCH ×3 (06:07→16:15)
[2016-12-12 07:12] LABS: BASOPHILS % 0.1 % (0.0-2.0); HEMATOCRIT. 27.9 % (42.0-52.0); HEMOGLOBIN. 9.1 g/dL (14.0-18.0); LYMPHOCYTES % 3.6 % (20.0-50.0); MEAN CORPUSCULAR HEMOGLOBIN 27.4 pg (28.0-32.0); MEAN CORPUSCULAR VOLUME 83.6 fL (80.0-94.0); MEAN PLATELET VOLUME 9.1 fl (7.4-10.4); MONOCYTES % 2.1 % (2.0-8.0); NEUTROPHILS % 94.2 % (40.0-76.0); PLATELET 84 x1000/uL (130-400); RED BLOOD CELL COUNT 3.34 mill/uL (4.7-6.1); RED CELL DISTRIBUTION WIDTH 19.5 % (11.6-14.6)
[2016-12-12 07:31] LABS: CHLORIDE 110 mEq/L (98-107)
[2016-12-12 07:37] LABS: CARBON DIOXIDE 20 mEq/L (21-32); PHOSPHORUS 3.4 mg/dL (2.5-4.9)
[2016-12-12] MEDS: LACTOBACILLUS GG CAPSULE PO SCH (08:14)
[2016-12-12] MEDS: COLCHICINE 0.6MG TABLET PO SCH (08:14)
[2016-12-12] MEDS: ALLOPURINOL 300 MG TABLET PO SCH ×2 (08:14→17:23)
[2016-12-12] MEDS: METOPROLOL TARTRATE 25MG TABLET PO SCH (08:15)
[2016-12-12] MEDS: PANTOPRAZOLE SODIUM 40 MG/VIAL IV SCH (08:16)
[2016-12-12] MEDS: INSULIN LISPRO 100 UNITS/ML SUBCUT SCH ×3 (08:17→17:26)
[2016-12-12] MEDS: DOCUSATE SODIUM 100MG CAPSULE PO PRN (08:20)
[2016-12-12] MEDS: BACITRACIN ZINC 15GM TUBE TOP SCH (08:23)
[2016-12-12] MEDS ORDERED: MAGNESIUM 2 G PREMIX 50 ML IV NR (09:00)
[2016-12-12] MEDS: ACETAMINOPHEN 325MG TABLET PO PRN (11:21)
[2016-12-12] MEDS: INSULIN DETEMIR UD 100 UNITS/ML SYR SUBCUT SCH (11:22)
[2016-12-12] MEDS ORDERED: INSULIN DETEMIR UD 100 UNITS/ML SYR SUBCUT SCH (22:00)
[2016-12-13] MEDS ORDERED: INSULIN DETEMIR UD 100 UNITS/ML SYR SUBCUT SCH (10:00)
== END 2016-12-12 20:40 | DRG 720 ==
LOC: ER 10:13 → 6EST 14:31 → ENRESERV 16:10 → 5WST 11-18 15:15 → 3WST 11-20 05:41
PROVIDERS: ADMIT Internal Medicine; ATTEND Internal Medicine
PROC: 3E0U33Z Introduction of Anti-inflammatory into Joints, Percutaneous Approach (ICD-10-PCS; 2016-11-20)
PROC: 30233N1 Transfusion of Nonautologous Red Blood Cells into Peripheral Vein, Percutaneous Approach (ICD-10-PCS; 2016-11-20)
PROC: 3E0U3BZ Introduction of Anesthetic Agent into Joints, Percutaneous Approach (ICD-10-PCS; 2016-11-20)
PROC: 02HV33Z Insertion of Infusion Device into Superior Vena Cava, Percutaneous Approach (ICD-10-PCS; 2016-11-24)
PROC: B548ZZA Ultrasonography of Superior Vena Cava, Guidance (ICD-10-PCS; 2016-11-24)
PROC: 0S9D3ZZ Drainage of Left Knee Joint, Percutaneous Approach (ICD-10-PCS; principal; 2016-12-11)
DX: A41.9 Sepsis, unspecified organism (principal); N17.0 Acute kidney failure with tubular necrosis; E43 Unspecified severe protein-calorie malnutrition; D68.9 Coagulation defect, unspecified; E11.52 Type 2 diabetes mellitus with diabetic peripheral angiopathy with gangrene; E11.22 Type 2 diabetes mellitus with diabetic chronic kidney disease; M00.9 Pyogenic arthritis, unspecified; K59.39 Other megacolon; N18.3 Chronic kidney disease, stage 3 (moderate); E11.65 Type 2 diabetes mellitus with hyperglycemia; E66.9 Obesity, unspecified; I48.0 Paroxysmal atrial fibrillation; D50.9 Iron deficiency anemia, unspecified; D63.8 Anemia in other chronic diseases classified elsewhere; E78.5 Hyperlipidemia, unspecified; E83.42 Hypomagnesemia; E87.1 Hypo-osmolality and hyponatremia; I12.9 Hypertensive chronic kidney disease with stage 1 through stage 4 chronic kidney disease, or unspecified chronic kidney disease; J98.11 Atelectasis; K76.0 Fatty (change of) liver, not elsewhere classified; M19.071 Primary osteoarthritis, right ankle and foot; M1A.9XX0 Chronic gout, unspecified, without tophus (tophi); I89.0 Lymphedema, not elsewhere classified; M1A.9XX1 Chronic gout, unspecified, with tophus (tophi); K56.0 Paralytic ileus; B37.49 Other urogenital candidiasis; D69.59 Other secondary thrombocytopenia; E11.649 Type 2 diabetes mellitus with hypoglycemia without coma; E87.5 Hyperkalemia; M17.12 Unilateral primary osteoarthritis, left knee; M20.40 Other hammer toe(s) (acquired), unspecified foot; E83.51 Hypocalcemia; K83.8 Other specified diseases of biliary tract; E86.0 Dehydration; T38.0X5A Adverse effect of glucocorticoids and synthetic analogues, initial encounter; Z82.69 Family history of other diseases of the musculoskeletal system and connective tissue; Y92.89 Other specified places as the place of occurrence of the external cause; Z79.899 Other long term (current) drug therapy; Z68.35 Body mass index [BMI] 35.0-35.9, adult; Z79.84 Long term (current) use of oral hypoglycemic drugs; Z83.3 Family history of diabetes mellitus; Z87.441 Personal history of nephrotic syndrome
CPT/HCPCS: 36415; 36430; 36569; 71010; 74000; 74176; 74250; 74270; 76705; 76937; 78580; 80048; 80053; 80061; 80202; 81001; 82040; 82270; 82465; 82550; 82570; 82607; 82728; 82746; 82962; 83036; 83520; 83540; 83550; 83605; 83690; 83735; 84100; 84132; 84145; 84156; 84300; 84443; 84478; 84550; 85007; 85025; 85027; 85044; 85379; 85610; 85651; 85730; 86160; 86200; 86256; 86332; 86431; 86705; 86709; 86803; 86850; 86900; 86920; 87040; 87086; 87106; 87340; 93005; 93306; 93971; 94640; 94664; 96374; 97110; 97116; 97163; 97166; 97530; 97535; 99285; A6261; C1725; C9113; J0696; J1030; J1160; J1450; J1815; J2270; J2405; J2543; J2765; J2920; J3370; J3475; J3490; J7030; J7040; J7050; J7060; J7512; J7620; P9016; Q9963

== ENCOUNTER 2017-01-02 12:56 | Inpatient (IN) | payer MEDICAID ==
[~2017-01-02] VITALS: Ht 188 cm; Wt 118.1 kg
[~2017-01-02 12:56] MED LIST changes: +CELE50CA PO; +DOCU-138 PO; +HYDR-523 PO; +LOSA25TA12 PO; +METO25TA6 PO; +PANT40TA4 PO
[2017-01-02 14:12] LABS: BASOPHILS % 0.5 % (0.0-2.0); EOSINOPHILS % 0.4 % (0.0-5.0); HEMATOCRIT. 36.7 % (42.0-52.0); HEMOGLOBIN. 11.4 g/dL (14.0-18.0); LYMPHOCYTES % 8.5 % (20.0-50.0); MEAN CORPUSCULAR VOLUME 83.5 fL (80.0-94.0); MONOCYTES % 8.8 % (2.0-8.0); NEUTROPHILS % 81.8 % (40.0-76.0); PLATELET 306 x1000/uL (130-400)
[2017-01-02 14:16] LABS: CHLORIDE 102 mEq/L (98-107); INR 1.3; PROTHROMBIN TIME 13.9 sec (9.4-11.6)
[2017-01-02 14:24] LABS: CARBON DIOXIDE 29 mEq/L (21-32)
[2017-01-02 14:26] LABS: TROPONIN I 0.04 ng/mL (0.00-0.04)
[2017-01-02] MEDS ORDERED: POTASSIUM CHLORIDE 20MEQ TABLET SR PO SCH (15:00)
[2017-01-02] MEDS ORDERED: MAGNESIUM 4 G PREMIX 100 ML IV SCH (15:00)
[2017-01-02] MEDS ORDERED: POTASSIUM CHLORIDE INJ 40 MEQ in DEXT 5% WATER 250 ML IV SCH (15:00)
[2017-01-02] MEDS ORDERED: ACETAMINOPHEN 325MG TABLET PO PRN (15:45)
[2017-01-02] MEDS ORDERED: IPRATROPIUM/ALBUTEROL 0.5-3(2.5)MG/3ML NEB INH PRN (15:45)
[2017-01-02] MEDS ORDERED: ONDANSETRON HCL 4MG/2ML VIAL IV PRN (15:45)
[2017-01-02] MEDS ORDERED: MAGNESIUM/ALUMINUM HYDROXIDE/SIMETHICONE 30ML UDC PO PRN (15:45)
[2017-01-02] MEDS ORDERED: HYDROCODONE/ACETAMINOPHEN 5/325MG TABLET PO PRN (15:45)
[2017-01-02] MEDS ORDERED: CLONIDINE 0.1MG TABLET PO PRN (15:45)
[2017-01-02 18:27] LABS: CLARITY URINE CLEAR (CLEAR); COLOR URINE YELLOW (YELLOW); GLUCOSE URINE NEGATIVE (NEGATIVE); KETONES URINE NEGATIVE (NEGATIVE); LEUKOCYTE ESTERASE URINE NEGATIVE (NEGATIVE); NITRITE URINE NEGATIVE (NEGATIVE); OCCULT BLOOD URINE NEGATIVE (NEGATIVE); PROTEIN URINE 2+ (NEGATIVE); SPECIFIC GRAVITY URINE 1.012 (1.005-1.030); UROBILINOGEN URINE 0.2 E.U./dL (0.2-1.0)
[2017-01-02 20:00] VITALS: BP 136/65
[2017-01-02] MEDS ORDERED: CLOP75TA16 PO (20:42)
[2017-01-02] MEDS ORDERED: GABA-533 PO (20:42)
[2017-01-02] MEDS ORDERED: GLAT40SY SQ (20:42)
[2017-01-02] MEDS ORDERED: OXYB5TAB11 PO (20:42)
[2017-01-02] MEDS ORDERED: FLUT9.9S NS (20:42)
[2017-01-02] MEDS ORDERED: BACL-141 PO (20:42)
[2017-01-02] MEDS ORDERED: PATAODR OP (20:42)
[2017-01-02 20:53] VITALS: BP 124/98
[2017-01-02] MEDS: INSULIN LISPRO 100 UNITS/ML SUBCUT SCH (21:00)
[2017-01-02] MEDS: BLOOD SUGAR DIAGNOSTIC STRIP TEST SCH (21:55)
[2017-01-02 22:00] VITALS: BP 136/82
[2017-01-02 23:45] LABS: CREATINE KINASE MB FRACTION 3.4 ng/mL (0.5-3.6); TROPONIN I 0.05 ng/mL (0.00-0.04)
[2017-01-03] VITALS (12 sets, daily range): BP systolic 103–142; BP diastolic 56–86
[2017-01-03 05:56] LABS: BASOPHILS % 0.7 % (0.0-2.0); EOSINOPHILS % 0.5 % (0.0-5.0); HEMATOCRIT. 33.5 % (42.0-52.0); HEMOGLOBIN. 10.5 g/dL (14.0-18.0); LYMPHOCYTES % 7.3 % (20.0-50.0); MEAN CORPUSCULAR HEMOGLOBIN 26.2 pg (28.0-32.0); MEAN CORPUSCULAR VOLUME 83.6 fL (80.0-94.0); MEAN PLATELET VOLUME 8.3 fl (7.4-10.4); MONOCYTES % 10.6 % (2.0-8.0); NEUTROPHILS % 80.9 % (40.0-76.0); PLATELET 273 x1000/uL (130-400); RED BLOOD CELL COUNT 4.01 mill/uL (4.7-6.1); RED CELL DISTRIBUTION WIDTH 20.8 % (11.6-14.6)
[2017-01-03] MEDS: PANTOPRAZOLE 40MG DR TABLET PO SCH (06:10)
[2017-01-03] MEDS: BLOOD SUGAR DIAGNOSTIC STRIP TEST SCH ×7 (06:10→22:06)
[2017-01-03] MEDS: INSULIN LISPRO 100 UNITS/ML SUBCUT SCH ×4 (06:21→21:00)
[2017-01-03] MEDS ORDERED: NAPHAZOLINE HCL/PHENIR MAL OPHTH SOLN 15ML OP PRN (06:45)
[2017-01-03] MEDS ORDERED: METFORMIN HCL 500MG TABLET PO SCH (07:20)
[2017-01-03] MEDS ORDERED: DEXT 5%/0.45% NACL 1000ML 1,000 ML IV SCH (07:30)
[2017-01-03 07:55] LABS: TROPONIN I 0.04 ng/mL (0.00-0.04)
[2017-01-03 08:07] LABS: CREATINE KINASE MB FRACTION 3.2 ng/mL (0.5-3.6)
[2017-01-03] MEDS: GABAPENTIN 400MG CAPSULE PO SCH (08:49)
[2017-01-03] MEDS: ASCORBIC ACID 500 MG TABLET PO SCH (08:49)
[2017-01-03] MEDS: ALLOPURINOL 100 MG TABLET PO SCH (08:49)
[2017-01-03] MEDS: BACLOFEN 10MG TABLET PO SCH (08:49)
[2017-01-03] MEDS: OXYBUTYNIN CHLORIDE 5MG TABLET PO SCH ×3 (08:49→17:02)
[2017-01-03] MEDS: CLOPIDOGREL 75MG TABLET PO SCH (08:50)
[2017-01-03] MEDS: GLIPIZIDE 10MG TABLET PO SCH ×2 (08:50→16:43)
[2017-01-03] MEDS: FERROUS SULFATE 325MG TABLET PO SCH (08:50)
[2017-01-03] MEDS: METOPROLOL TARTRATE 25MG TABLET PO SCH ×2 (08:50→21:00)
[2017-01-03] MEDS: FLUTICASONE PROPIONATE 50MCG/SPRAY BOTTLE BOTHNSTRLS SCH (08:50)
[2017-01-03] MEDS ORDERED: OLOPATADINE HCL OP SCH (09:00)
[2017-01-03] MEDS: LISINOPRIL 20MG TABLET PO SCH (09:00)
[2017-01-03] MEDS ORDERED: CELECOXIB 100MG CAPSULE PO SCH (09:00)
[2017-01-03] MEDS ORDERED: POTASSIUM CHLORIDE 20MEQ TABLET SR PO SCH (09:45)
[2017-01-03] MEDS: LOSARTAN POTASSIUM 25 MG TABLET PO SCH (10:08)
[2017-01-03] MEDS ORDERED: MAGNESIUM 2 G PREMIX 50 ML IV NR (12:00)
[2017-01-03] MEDS: ENOXAPARIN 120MG/0.8ML SYR SUBCUT SCH ×2 (12:10→21:59)
[2017-01-03] MEDS: DEXTROSE 50% WATER 50ML SYRINGE IV PRN ×4 (14:34→21:52)
[2017-01-03] MEDS: DEXT 10% WATER 1,000 ML IV SCH (19:10)
[2017-01-04] VITALS (14 sets, daily range): BP systolic 94–135; BP diastolic 59–85
[2017-01-04] MEDS: BLOOD SUGAR DIAGNOSTIC STRIP TEST SCH ×10 (00:05→23:57)
[2017-01-04] MEDS: DEXTROSE 50% WATER 50ML SYRINGE IV PRN (00:14)
[2017-01-04] MEDS: DEXT 10% WATER 1,000 ML IV SCH (05:27)
[2017-01-04 06:56] LABS: BASOPHILS % 0.4 % (0.0-2.0); EOSINOPHILS % 0.3 % (0.0-5.0); HEMATOCRIT. 30.8 % (42.0-52.0); HEMOGLOBIN. 9.8 g/dL (14.0-18.0); LYMPHOCYTES % 8.6 % (20.0-50.0); MEAN CORPUSCULAR HEMOGLOBIN 26.5 pg (28.0-32.0); MEAN CORPUSCULAR VOLUME 83.7 fL (80.0-94.0); MEAN PLATELET VOLUME 8.2 fl (7.4-10.4); NEUTROPHILS % 76.7 % (40.0-76.0); PLATELET 282 x1000/uL (130-400); RED BLOOD CELL COUNT 3.68 mill/uL (4.7-6.1); RED CELL DISTRIBUTION WIDTH 20.6 % (11.6-14.6)
[2017-01-04] MEDS: INSULIN LISPRO 100 UNITS/ML SUBCUT SCH ×5 (06:56→23:56)
[2017-01-04] MEDS: PANTOPRAZOLE 40MG DR TABLET PO SCH (06:56)
[2017-01-04 07:29] LABS: CARBON DIOXIDE 22 mEq/L (21-32); CHLORIDE 100 mEq/L (98-107); PHOSPHORUS 1.6 mg/dL (2.5-4.9)
[2017-01-04] MEDS: FLUTICASONE PROPIONATE 50MCG/SPRAY BOTTLE BOTHNSTRLS SCH (08:34)
[2017-01-04] MEDS: ASCORBIC ACID 500 MG TABLET PO SCH (08:35)
[2017-01-04] MEDS: BACLOFEN 10MG TABLET PO SCH (08:35)
[2017-01-04] MEDS: CLOPIDOGREL 75MG TABLET PO SCH (08:35)
[2017-01-04] MEDS: ALLOPURINOL 100 MG TABLET PO SCH (08:35)
[2017-01-04] MEDS: GLIPIZIDE 10MG TABLET PO SCH (08:35)
[2017-01-04] MEDS: OXYBUTYNIN CHLORIDE 5MG TABLET PO SCH ×3 (08:35→16:37)
[2017-01-04] MEDS: GABAPENTIN 400MG CAPSULE PO SCH (08:35)
[2017-01-04] MEDS: FERROUS SULFATE 325MG TABLET PO SCH (08:35)
[2017-01-04] MEDS: METOPROLOL TARTRATE 25MG TABLET PO SCH ×2 (08:37→20:42)
[2017-01-04] MEDS: ENOXAPARIN 120MG/0.8ML SYR SUBCUT SCH ×2 (08:37→20:42)
[2017-01-04] MEDS: LOSARTAN POTASSIUM 25 MG TABLET PO SCH (08:38)
[2017-01-04] MEDS: LISINOPRIL 20MG TABLET PO SCH (09:00)
[2017-01-04] MEDS ORDERED: DEXTROSE 50% WATER 50ML SYRINGE IV PRN (09:45)
[2017-01-04] MEDS ORDERED: MAGNESIUM 2 G PREMIX 50 ML IV NR (10:00)
[2017-01-04] MEDS ORDERED: BLOOD SUGAR DIAGNOSTIC STRIP TEST SCH (10:00)
[2017-01-04] MEDS ORDERED: INSULIN LISPRO 100 UNITS/ML SUBCUT SCH (10:00)
[2017-01-04] MEDS ORDERED: SODIUM PHOS,M-BASIC-D-BASIC 10 MM in DEXT 5% WATER 246.6667 ML IV NR (11:00)
[2017-01-04] MEDS ORDERED: POTASSIUM CHLORIDE INJ 40 MEQ in DEXT 5% WATER 250 ML IV NR (15:00)
[2017-01-04] MEDS ORDERED: ENOXAPARIN 120MG/0.8ML SYR SUBCUT SCH (16:23)
[2017-01-05] VITALS (12 sets, daily range): BP systolic 91–118; BP diastolic 43–73
[2017-01-05] MEDS: INSULIN LISPRO 100 UNITS/ML SUBCUT SCH ×5 (04:06→20:46)
[2017-01-05] MEDS: BLOOD SUGAR DIAGNOSTIC STRIP TEST SCH ×5 (04:06→20:44)
[2017-01-05 06:11] LABS: HEMATOCRIT 30.5 % (42.0-52.0); HEMOGLOBIN 9.6 g/dL (14.0-18.0); MEAN CORPUSCULAR HEMOGLOBIN 26.2 pg (28.0-32.0); MEAN CORPUSCULAR VOLUME 83.9 fL (80.0-94.0); PLATELET 256 x1000/uL (130-400); RED BLOOD CELL COUNT 3.64 mill/uL (4.7-6.1); RED CELL DISTRIBUTION WIDTH 20.8 % (11.6-14.6)
[2017-01-05 06:15] LABS: CARBON DIOXIDE 24 mEq/L (21-32); CHLORIDE 100 mEq/L (98-107); PHOSPHORUS 2.1 mg/dL (2.5-4.9)
[2017-01-05] MEDS: LOSARTAN POTASSIUM 25 MG TABLET PO SCH (08:12)
[2017-01-05] MEDS: ALLOPURINOL 100 MG TABLET PO SCH (08:12)
[2017-01-05] MEDS: ASCORBIC ACID 500 MG TABLET PO SCH (08:12)
[2017-01-05] MEDS: GABAPENTIN 400MG CAPSULE PO SCH (08:12)
[2017-01-05] MEDS: FERROUS SULFATE 325MG TABLET PO SCH (08:12)
[2017-01-05] MEDS: CLOPIDOGREL 75MG TABLET PO SCH (08:12)
[2017-01-05] MEDS: OXYBUTYNIN CHLORIDE 5MG TABLET PO SCH ×3 (08:12→16:10)
[2017-01-05] MEDS: BACLOFEN 10MG TABLET PO SCH (08:12)
[2017-01-05] MEDS: FAMOTIDINE 20MG TABLET PO SCH ×2 (08:14→16:10)
[2017-01-05] MEDS: FLUTICASONE PROPIONATE 50MCG/SPRAY BOTTLE BOTHNSTRLS SCH (08:16)
[2017-01-05] MEDS: ENOXAPARIN 120MG/0.8ML SYR SUBCUT SCH ×2 (08:16→20:44)
[2017-01-05] MEDS: LISINOPRIL 20MG TABLET PO SCH (09:00)
[2017-01-05] MEDS ORDERED: POTASSIUM CHLORIDE 20MEQ TABLET SR PO NR (09:08)
[2017-01-05] MEDS ORDERED: POTASSIUM PHOS,M-BASIC-D-BASIC 30 MMOL in SODIUM CHLORIDE 0.9% 500 ML IV ONE (09:15)
[2017-01-05] MEDS: METOPROLOL TARTRATE 25MG TABLET PO SCH ×2 (09:54→20:43)
[2017-01-05] MEDS ORDERED: MAGNESIUM 2 G PREMIX 50 ML IV SCH (10:00)
[2017-01-05] MEDS ORDERED: SODIUM PHOS,M-BASIC-D-BASIC 30 MM in DEXT 5% WATER 500 ML IV NR (10:30)
[2017-01-06] VITALS (11 sets, daily range): BP systolic 91–128; BP diastolic 52–84
[2017-01-06] MEDS: BLOOD SUGAR DIAGNOSTIC STRIP TEST SCH ×5 (00:32→16:49)
[2017-01-06] MEDS: INSULIN LISPRO 100 UNITS/ML SUBCUT SCH ×5 (04:00→16:00)
[2017-01-06 05:54] LABS: BASOPHILS % 0.8 % (0.0-2.0); EOSINOPHILS % 0.9 % (0.0-5.0); HEMATOCRIT. 30.9 % (42.0-52.0); HEMOGLOBIN. 9.8 g/dL (14.0-18.0); LYMPHOCYTES % 12.3 % (20.0-50.0); MEAN CORPUSCULAR HEMOGLOBIN 26.5 pg (28.0-32.0); MEAN CORPUSCULAR VOLUME 83.9 fL (80.0-94.0); MEAN PLATELET VOLUME 8.4 fl (7.4-10.4); MONOCYTES % 9.9 % (2.0-8.0); NEUTROPHILS % 76.1 % (40.0-76.0); PLATELET 296 x1000/uL (130-400); RED BLOOD CELL COUNT 3.69 mill/uL (4.7-6.1); RED CELL DISTRIBUTION WIDTH 20.8 % (11.6-14.6)
[2017-01-06 06:55] LABS: CHLORIDE 104 mEq/L (98-107)
[2017-01-06 07:01] LABS: CARBON DIOXIDE 23 mEq/L (21-32); PHOSPHORUS 2.7 mg/dL (2.5-4.9)
[2017-01-06] MEDS: ENOXAPARIN 120MG/0.8ML SYR SUBCUT SCH (08:02)
[2017-01-06] MEDS: FLUTICASONE PROPIONATE 50MCG/SPRAY BOTTLE BOTHNSTRLS SCH (08:02)
[2017-01-06] MEDS: ASCORBIC ACID 500 MG TABLET PO SCH (08:04)
[2017-01-06] MEDS: CLOPIDOGREL 75MG TABLET PO SCH (08:04)
[2017-01-06] MEDS: OXYBUTYNIN CHLORIDE 5MG TABLET PO SCH ×3 (08:04→16:51)
[2017-01-06] MEDS: GABAPENTIN 400MG CAPSULE PO SCH (08:04)
[2017-01-06] MEDS: LOSARTAN POTASSIUM 25 MG TABLET PO SCH (08:04)
[2017-01-06] MEDS: BACLOFEN 10MG TABLET PO SCH (08:04)
[2017-01-06] MEDS: ALLOPURINOL 100 MG TABLET PO SCH (08:04)
[2017-01-06] MEDS: FAMOTIDINE 20MG TABLET PO SCH ×2 (08:04→16:51)
[2017-01-06] MEDS: FERROUS SULFATE 325MG TABLET PO SCH (08:04)
[2017-01-06] MEDS ORDERED: GLATIRAMER ACETATE 40 MG SQ SCH (09:00)
[2017-01-06] MEDS: METOPROLOL TARTRATE 25MG TABLET PO SCH (10:06)
[2017-01-06] MEDS ORDERED: RIVAROXABAN 15 MG TABLET PO SCH (20:00)
[2017-01-27] MEDS ORDERED: RIVAROXABAN 20 MG TABLET PO SCH (17:20)
== END 2017-01-06 19:40 | DRG 469 ==
LOC: ER 14:20 → EDBEDREQTM 14:45 → EDBEDREQ 14:45 → ENRESERV 17:17 → 3WST 19:14
PROVIDERS: ADMIT Internal Medicine; ATTEND Internal Medicine
DX: N17.9 Acute kidney failure, unspecified (principal); E43 Unspecified severe protein-calorie malnutrition; E11.22 Type 2 diabetes mellitus with diabetic chronic kidney disease; D69.6 Thrombocytopenia, unspecified; I82.432 Acute embolism and thrombosis of left popliteal vein; E83.42 Hypomagnesemia; I48.0 Paroxysmal atrial fibrillation; E83.39 Other disorders of phosphorus metabolism; G35 Multiple sclerosis; I12.9 Hypertensive chronic kidney disease with stage 1 through stage 4 chronic kidney disease, or unspecified chronic kidney disease; M1A.9XX1 Chronic gout, unspecified, with tophus (tophi); N18.9 Chronic kidney disease, unspecified; E87.6 Hypokalemia; E86.9 Volume depletion, unspecified; D63.8 Anemia in other chronic diseases classified elsewhere; E78.5 Hyperlipidemia, unspecified; K21.9 Gastro-esophageal reflux disease without esophagitis; I25.10 Atherosclerotic heart disease of native coronary artery without angina pectoris; T38.0X5A Adverse effect of glucocorticoids and synthetic analogues, initial encounter; Z88.0 Allergy status to penicillin; Z79.84 Long term (current) use of oral hypoglycemic drugs; Z79.899 Other long term (current) drug therapy
CPT/HCPCS: 36415; 80048; 80053; 81001; 82550; 82553; 82947; 82962; 83735; 84100; 84484; 85025; 85027; 85610; 87015; 87040; 87045; 87086; 87427; 87449; 87493; 89055; 93005; 93970; 96365; 96366; 96368; 97110; 97116; 97162; 97166; 97530; 99291; J1650; J1815; J3475; J3480; J3490; J7050; J7060

== ENCOUNTER 2017-01-29 19:05 | Inpatient (IN) | payer MEDICAID ==
[~2017-01-29] VITALS: Ht 188 cm; Wt 134.7 kg
[~2017-01-29 19:05] MED LIST changes: +BACL-141 PO; +CLOP75TA16 PO; +FLUT9.9S NS; +GABA-533 PO; +GLAT40SY SQ; -LISI-604 PO; +OXYB5TAB11 PO; +PATAODR OP
[2017-01-29 20:21] LABS: CHLORIDE 102 mEq/L (98-107)
[2017-01-29 20:27] LABS: HEMOGLOBIN. 9.9 g/dL (14.0-18.0); INR 1.3; MEAN CORPUSCULAR VOLUME 86.7 fL (80.0-94.0); MEAN PLATELET VOLUME 8.8 fl (7.4-10.4); PARTIAL THROMBOPLASTIN TIME 26.4 sec (23.4-31.0); PLATELET 217 x1000/uL (130-400); PROTHROMBIN TIME 13.5 sec (9.4-11.6); RED BLOOD CELL COUNT 3.69 mill/uL (4.7-6.1); RED CELL DISTRIBUTION WIDTH 20.3 % (11.6-14.6)
[2017-01-29 20:29] LABS: CARBON DIOXIDE 26 mEq/L (21-32)
[2017-01-29 20:31] LABS: TROPONIN I 0.05 ng/mL (0.00-0.04)
[2017-01-29 20:53] LABS: ATYPICAL LYMPHOCYTES 2; PLATELET ESTIMATE NORMAL
[2017-01-29] MEDS ORDERED: SODIUM CHLORIDE 0.9% 1,000 ML IV ONE (21:24)
[2017-01-29] MEDS ORDERED: INSULIN REGULAR (HUMULIN R) UD 100 UNITS/ML SYR IV ONE (21:30)
[2017-01-29] MEDS ORDERED: INSULIN REGULAR (HUMULIN R) 300UNITS/3ML IV NR (21:52)
[2017-01-29] MEDS ORDERED: CALCIUM CHLORIDE 1GM/10ML SYR IV ONE (22:15)
[2017-01-29] MEDS ORDERED: ONDANSETRON HCL 4MG/2ML VIAL IV PRN (23:30)
[2017-01-29] MEDS ORDERED: DEXTROSE 50% WATER 50ML SYRINGE IV PRN (23:30)
[2017-01-30] VITALS (7 sets, daily range): BP systolic 96–138; BP diastolic 62–86
[2017-01-30] MEDS: HYDROCODONE/ACETAMINOPHEN 5/325MG TABLET PO PRN (01:20)
[2017-01-30] MEDS: BLOOD SUGAR DIAGNOSTIC STRIP TEST SCH ×5 (01:25→21:23)
[2017-01-30] MEDS: INSULIN LISPRO 100 UNITS/ML SUBCUT SCH ×5 (01:38→21:00)
[2017-01-30 08:03] LABS: BASOPHILS % 0.1 % (0.0-2.0); HEMATOCRIT. 29.2 % (42.0-52.0); HEMOGLOBIN. 9.3 g/dL (14.0-18.0); LYMPHOCYTES % 7.9 % (20.0-50.0); MEAN CORPUSCULAR HEMOGLOBIN 27.3 pg (28.0-32.0); MEAN CORPUSCULAR VOLUME 85.5 fL (80.0-94.0); MEAN PLATELET VOLUME 9.2 fl (7.4-10.4); MONOCYTES % 7.3 % (2.0-8.0); NEUTROPHILS % 84.7 % (40.0-76.0); PLATELET 193 x1000/uL (130-400); RED BLOOD CELL COUNT 3.42 mill/uL (4.7-6.1); RED CELL DISTRIBUTION WIDTH 20.3 % (11.6-14.6)
[2017-01-30 08:11] LABS: CARBON DIOXIDE 28 mEq/L (21-32); CHLORIDE 104 mEq/L (98-107)
[2017-01-30] MEDS ORDERED: CALCIUM CARBONATE 1250MG TABLET (500MG ELEMENTAL CALCIUM) PO NR (09:30)
[2017-01-30] MEDS ORDERED: INSULIN DETEMIR UD 100 UNITS/ML SYR SUBCUT SCH (10:00)
[2017-01-30] MEDS: LOSARTAN POTASSIUM 25 MG TABLET PO SCH (10:30)
[2017-01-30] MEDS: BACLOFEN 10MG TABLET PO SCH (10:30)
[2017-01-30] MEDS: GABAPENTIN 400MG CAPSULE PO SCH (10:31)
[2017-01-30] MEDS: CLOPIDOGREL 75MG TABLET PO SCH (10:31)
[2017-01-30] MEDS: ALLOPURINOL 100 MG TABLET PO SCH (10:31)
[2017-01-30] MEDS: METOPROLOL TARTRATE 25MG TABLET PO SCH ×2 (10:32→21:00)
[2017-01-30 12:29] LABS: TROPONIN I 0.05 ng/mL (0.00-0.04)
[2017-01-30] MEDS: DEXT 5%/0.45% NACL KCL 20MEQ/L 1,000 ML IV SCH ×2 (12:32→21:23)
[2017-01-30] MEDS: FERROUS SULFATE 325MG TABLET PO SCH ×2 (13:04→17:41)
[2017-01-30] MEDS: OXYBUTYNIN CHLORIDE 5MG TABLET PO SCH ×2 (13:04→17:41)
[2017-01-30] MEDS: CALCIUM CARBONATE 1250MG TABLET (500MG ELEMENTAL CALCIUM) PO SCH (17:42)
[2017-01-30] MEDS: INSULIN DETEMIR UD 100 UNITS/ML SYR SUBCUT SCH (21:59)
[2017-01-31] VITALS: BP 138/48
[2017-01-31 03:47] LABS: GLUCOSE URINE NEGATIVE (NEGATIVE); KETONES URINE NEGATIVE (NEGATIVE); LEUKOCYTE ESTERASE URINE NEGATIVE (NEGATIVE); NITRITE URINE NEGATIVE (NEGATIVE); OCCULT BLOOD URINE NEGATIVE (NEGATIVE); PH URINE 5.5 (4.5-8.0); PROTEIN URINE 2+ (NEGATIVE); SPECIFIC GRAVITY URINE 1.005 (1.005-1.030); UROBILINOGEN URINE 0.2 E.U./dL (0.2-1.0)
[2017-01-31 04:04] LABS: CLARITY URINE CLEAR (CLEAR); COLOR URINE YELLOW (YELLOW)
[2017-01-31 06:07] LABS: BASOPHILS % 0.2 % (0.0-2.0); EOSINOPHILS % 0.8 % (0.0-5.0); HEMATOCRIT. 28.5 % (42.0-52.0); HEMOGLOBIN. 9.1 g/dL (14.0-18.0); LYMPHOCYTES % 19.3 % (20.0-50.0); MEAN CORPUSCULAR HEMOGLOBIN 27.4 pg (28.0-32.0); MEAN CORPUSCULAR VOLUME 85.7 fL (80.0-94.0); MEAN PLATELET VOLUME 8.9 fl (7.4-10.4); MONOCYTES % 8.2 % (2.0-8.0); NEUTROPHILS % 71.5 % (40.0-76.0); PLATELET 180 x1000/uL (130-400); RED BLOOD CELL COUNT 3.32 mill/uL (4.7-6.1); RED CELL DISTRIBUTION WIDTH 19.8 % (11.6-14.6)
[2017-01-31] MEDS: INSULIN LISPRO 100 UNITS/ML SUBCUT SCH ×4 (06:21→20:31)
[2017-01-31] MEDS: BLOOD SUGAR DIAGNOSTIC STRIP TEST SCH ×4 (06:21→20:31)
[2017-01-31 07:39] LABS: CARBON DIOXIDE 31 mEq/L (21-32)
[2017-01-31 07:58] LABS: CHLORIDE 107 mEq/L (98-107)
[2017-01-31 08:00] VITALS: BP 102/63
[2017-01-31] MEDS: CLOPIDOGREL 75MG TABLET PO SCH (08:33)
[2017-01-31] MEDS: CALCIUM CARBONATE 1250MG TABLET (500MG ELEMENTAL CALCIUM) PO SCH ×2 (08:33→18:12)
[2017-01-31] MEDS: FERROUS SULFATE 325MG TABLET PO SCH ×3 (08:34→18:12)
[2017-01-31] MEDS: BACLOFEN 10MG TABLET PO SCH (08:34)
[2017-01-31] MEDS: LOSARTAN POTASSIUM 25 MG TABLET PO SCH (08:34)
[2017-01-31] MEDS: OXYBUTYNIN CHLORIDE 5MG TABLET PO SCH ×3 (08:34→18:13)
[2017-01-31] MEDS: DOCUSATE SODIUM 100MG CAPSULE PO PRN (09:12)
[2017-01-31] MEDS: ALLOPURINOL 100 MG TABLET PO SCH (09:12)
[2017-01-31] MEDS: METOPROLOL TARTRATE 25MG TABLET PO SCH ×2 (09:13→20:30)
[2017-01-31] MEDS: GABAPENTIN 400MG CAPSULE PO SCH (09:30)
[2017-01-31] MEDS: INSULIN DETEMIR UD 100 UNITS/ML SYR SUBCUT SCH ×2 (09:56→21:43)
[2017-01-31] MEDS ORDERED: POTASSIUM CHLORIDE INJ 60 MEQ in DEXT 5% WATER 500 ML IV NR (10:30)
[2017-01-31] MEDS ORDERED: MAGNESIUM 4 G PREMIX 100 ML IV NR (10:30)
[2017-01-31 12:03] VITALS: BP 106/60
[2017-01-31] MEDS: HYDROCODONE/ACETAMINOPHEN 5/325MG TABLET PO PRN (13:49)
[2017-01-31 14:33] LABS: CALCIUM URINE (RAW) <5.0 mg/dL mg/dL; CALCIUM URINE 24 HR 149.5 mg/24hr (<300)
[2017-01-31 16:00] VITALS: BP 109/64
[2017-01-31 20:00] VITALS: BP 91/52
[2017-02-01] VITALS: BP 102/60
[2017-02-01 04:00] VITALS: BP 103/61
[2017-02-01 06:03] LABS: BASOPHILS % 0.2 % (0.0-2.0); HEMATOCRIT. 29.8 % (42.0-52.0); HEMOGLOBIN. 9.5 g/dL (14.0-18.0); MEAN CORPUSCULAR HEMOGLOBIN 27.8 pg (28.0-32.0); MEAN CORPUSCULAR VOLUME 87.1 fL (80.0-94.0); MEAN PLATELET VOLUME 8.8 fl (7.4-10.4); MONOCYTES % 9.2 % (2.0-8.0); NEUTROPHILS % 74.6 % (40.0-76.0); PLATELET 170 x1000/uL (130-400); RED BLOOD CELL COUNT 3.43 mill/uL (4.7-6.1); RED CELL DISTRIBUTION WIDTH 20.1 % (11.6-14.6)
[2017-02-01 06:46] LABS: CHLORIDE 105 mEq/L (98-107)
[2017-02-01 06:55] LABS: CARBON DIOXIDE 32 mEq/L (21-32)
[2017-02-01 07:25] LABS: PHOSPHORUS 3.2 mg/dL (2.5-4.9)
[2017-02-01] MEDS: BLOOD SUGAR DIAGNOSTIC STRIP TEST SCH ×4 (07:40→20:29)
[2017-02-01] MEDS: INSULIN LISPRO 100 UNITS/ML SUBCUT SCH ×4 (07:42→20:34)
[2017-02-01 08:06] VITALS: BP 127/80
[2017-02-01] MEDS: ALLOPURINOL 100 MG TABLET PO SCH (08:38)
[2017-02-01] MEDS: CLOPIDOGREL 75MG TABLET PO SCH (08:38)
[2017-02-01] MEDS: CALCIUM CARBONATE 1250MG TABLET (500MG ELEMENTAL CALCIUM) PO SCH ×2 (08:38→17:51)
[2017-02-01] MEDS: POTASSIUM CHLORIDE 20MEQ TABLET SR PO SCH (08:38)
[2017-02-01] MEDS: BACLOFEN 10MG TABLET PO SCH (08:38)
[2017-02-01] MEDS: DOCUSATE SODIUM 100MG CAPSULE PO PRN ×2 (08:39→17:51)
[2017-02-01] MEDS: FERROUS SULFATE 325MG TABLET PO SCH ×3 (08:39→17:51)
[2017-02-01] MEDS: OXYBUTYNIN CHLORIDE 5MG TABLET PO SCH ×3 (08:39→17:51)
[2017-02-01] MEDS: GABAPENTIN 400MG CAPSULE PO SCH (08:39)
[2017-02-01] MEDS: METOPROLOL TARTRATE 25MG TABLET PO SCH ×2 (08:39→20:29)
[2017-02-01] MEDS: LOSARTAN POTASSIUM 25 MG TABLET PO SCH (09:00)
[2017-02-01] MEDS: INSULIN DETEMIR UD 100 UNITS/ML SYR SUBCUT SCH ×2 (10:16→22:15)
[2017-02-01] MEDS ORDERED: POTASSIUM CHLORIDE 20MEQ TABLET SR PO ONE (10:30)
[2017-02-01] MEDS ORDERED: MAGNESIUM 4 G PREMIX 100 ML IV ONE (10:30)
[2017-02-01] MEDS ORDERED: MAGNESIUM SULFATE 3 GM in DEXT 5% WATER 96 ML IV NR (11:00)
[2017-02-01 12:01] VITALS: BP 19/74
[2017-02-01 16:48] VITALS: BP 127/65
[2017-02-01 20:00] VITALS: BP 140/68
[2017-02-01] MEDS: HYDROCODONE/ACETAMINOPHEN 5/325MG TABLET PO PRN (20:29)
[2017-02-02] VITALS (7 sets, daily range): BP systolic 95–140; BP diastolic 47–87
[2017-02-02] MEDS: BLOOD SUGAR DIAGNOSTIC STRIP TEST SCH ×4 (05:40→21:28)
[2017-02-02 06:58] LABS: BASOPHILS % 0.4 % (0.0-2.0); EOSINOPHILS % 1.2 % (0.0-5.0); HEMATOCRIT. 29.4 % (42.0-52.0); HEMOGLOBIN. 9.4 g/dL (14.0-18.0); LYMPHOCYTES % 14.3 % (20.0-50.0); MEAN CORPUSCULAR HEMOGLOBIN 27.9 pg (28.0-32.0); MEAN CORPUSCULAR VOLUME 87.1 fL (80.0-94.0); MEAN PLATELET VOLUME 9.1 fl (7.4-10.4); MONOCYTES % 12.1 % (2.0-8.0); PLATELET 159 x1000/uL (130-400); RED BLOOD CELL COUNT 3.38 mill/uL (4.7-6.1); RED CELL DISTRIBUTION WIDTH 19.2 % (11.6-14.6)
[2017-02-02 07:50] LABS: CARBON DIOXIDE 30 mEq/L (21-32); CHLORIDE 107 mEq/L (98-107); PHOSPHORUS 2.5 mg/dL (2.5-4.9)
[2017-02-02] MEDS: INSULIN LISPRO 100 UNITS/ML SUBCUT SCH ×4 (08:07→21:26)
[2017-02-02] MEDS: INSULIN DETEMIR UD 100 UNITS/ML SYR SUBCUT SCH ×2 (09:39→21:27)
[2017-02-02] MEDS: CLOPIDOGREL 75MG TABLET PO SCH (09:40)
[2017-02-02] MEDS: CALCIUM CARBONATE 1250MG TABLET (500MG ELEMENTAL CALCIUM) PO SCH ×2 (09:41→16:56)
[2017-02-02] MEDS: POTASSIUM CHLORIDE 20MEQ TABLET SR PO SCH (09:41)
[2017-02-02] MEDS: FERROUS SULFATE 325MG TABLET PO SCH ×3 (09:41→18:32)
[2017-02-02] MEDS: BACLOFEN 10MG TABLET PO SCH (09:41)
[2017-02-02] MEDS: LOSARTAN POTASSIUM 25 MG TABLET PO SCH (09:41)
[2017-02-02] MEDS: OXYBUTYNIN CHLORIDE 5MG TABLET PO SCH ×3 (09:41→16:55)
[2017-02-02] MEDS: ALLOPURINOL 100 MG TABLET PO SCH (09:41)
[2017-02-02] MEDS: GABAPENTIN 400MG CAPSULE PO SCH (09:41)
[2017-02-02] MEDS: METOPROLOL TARTRATE 25MG TABLET PO SCH ×2 (09:42→21:25)
[2017-02-02] MEDS ORDERED: MAGNESIUM 2 G PREMIX 50 ML IV NR (10:00)
[2017-02-02] MEDS: DOCUSATE SODIUM 100MG CAPSULE PO PRN (10:31)
[2017-02-02] MEDS: HYDROCODONE/ACETAMINOPHEN 5/325MG TABLET PO PRN (17:13)
[2017-02-03 04:05] VITALS: BP 116/76
[2017-02-03 06:28] LABS: BASOPHILS % 0.2 % (0.0-2.0); HEMATOCRIT. 31.9 % (42.0-52.0); HEMOGLOBIN. 10.3 g/dL (14.0-18.0); LYMPHOCYTES % 10.9 % (20.0-50.0); MEAN CORPUSCULAR HEMOGLOBIN 28.2 pg (28.0-32.0); MEAN CORPUSCULAR VOLUME 87.4 fL (80.0-94.0); MEAN PLATELET VOLUME 9.4 fl (7.4-10.4); MONOCYTES % 3.7 % (2.0-8.0); NEUTROPHILS % 85.2 % (40.0-76.0); PLATELET 172 x1000/uL (130-400); RED BLOOD CELL COUNT 3.65 mill/uL (4.7-6.1); RED CELL DISTRIBUTION WIDTH 18.8 % (11.6-14.6)
[2017-02-03] MEDS: BLOOD SUGAR DIAGNOSTIC STRIP TEST SCH ×2 (07:40→12:49)
[2017-02-03 07:47] LABS: CARBON DIOXIDE 25 mEq/L (21-32); CHLORIDE 103 mEq/L (98-107); PHOSPHORUS 2.2 mg/dL (2.5-4.9)
[2017-02-03 08:00] VITALS: BP 102/58
[2017-02-03] MEDS: POTASSIUM CHLORIDE 20MEQ TABLET SR PO SCH (08:31)
[2017-02-03] MEDS: OXYBUTYNIN CHLORIDE 5MG TABLET PO SCH ×2 (08:31→12:48)
[2017-02-03] MEDS: ALLOPURINOL 100 MG TABLET PO SCH (08:31)
[2017-02-03] MEDS: CALCIUM CARBONATE 1250MG TABLET (500MG ELEMENTAL CALCIUM) PO SCH (08:31)
[2017-02-03] MEDS: GABAPENTIN 400MG CAPSULE PO SCH (08:31)
[2017-02-03] MEDS: CLOPIDOGREL 75MG TABLET PO SCH (08:31)
[2017-02-03] MEDS: BACLOFEN 10MG TABLET PO SCH (08:31)
[2017-02-03] MEDS: FERROUS SULFATE 325MG TABLET PO SCH ×2 (08:31→12:48)
[2017-02-03] MEDS: LOSARTAN POTASSIUM 25 MG TABLET PO SCH (08:33)
[2017-02-03] MEDS: METOPROLOL TARTRATE 25MG TABLET PO SCH (08:33)
[2017-02-03] MEDS: INSULIN LISPRO 100 UNITS/ML SUBCUT SCH ×2 (08:33→12:49)
[2017-02-03] MEDS ORDERED: SODIUM POLYSTYRENE SULFONATE 15 G/60 ML BOT PO SCH (09:30)
[2017-02-03] MEDS ORDERED: SODIUM PHOS,M-BASIC-D-BASIC 15 MM in DEXT 5% WATER 245 ML IV SCH (10:00)
[2017-02-03] MEDS: INSULIN DETEMIR UD 100 UNITS/ML SYR SUBCUT SCH (10:47)
[2017-02-03 12:00] VITALS: BP 127/89
[2017-02-03 12:15] VITALS: BP 127/89
== END 2017-02-03 13:45 | disposition home or self-care (01) | DRG 420 ==
LOC: ER 19:05 → 7WST 21:57 → ENRESERV 22:09
PROVIDERS: ADMIT Internal Medicine; ATTEND Internal Medicine
DX: E11.65 Type 2 diabetes mellitus with hyperglycemia (principal); E43 Unspecified severe protein-calorie malnutrition; I47.2 Ventricular tachycardia; K85.90 Acute pancreatitis without necrosis or infection, unspecified; E11.52 Type 2 diabetes mellitus with diabetic peripheral angiopathy with gangrene; I13.0 Hypertensive heart and chronic kidney disease with heart failure and stage 1 through stage 4 chronic kidney disease, or unspecified chronic kidney disease; I50.32 Chronic diastolic (congestive) heart failure; I48.0 Paroxysmal atrial fibrillation; E83.51 Hypocalcemia; E87.6 Hypokalemia; D50.9 Iron deficiency anemia, unspecified; E11.22 Type 2 diabetes mellitus with diabetic chronic kidney disease; E83.42 Hypomagnesemia; E87.5 Hyperkalemia; K76.0 Fatty (change of) liver, not elsewhere classified; N18.9 Chronic kidney disease, unspecified; M10.9 Gout, unspecified; L97.529 Non-pressure chronic ulcer of other part of left foot with unspecified severity; E11.621 Type 2 diabetes mellitus with foot ulcer; D72.829 Elevated white blood cell count, unspecified; E78.5 Hyperlipidemia, unspecified; M19.90 Unspecified osteoarthritis, unspecified site; E66.9 Obesity, unspecified; Z79.4 Long term (current) use of insulin; Z79.899 Other long term (current) drug therapy; Z82.49 Family history of ischemic heart disease and other diseases of the circulatory system; Z86.718 Personal history of other venous thrombosis and embolism; Z83.3 Family history of diabetes mellitus; Z88.0 Allergy status to penicillin; Z68.38 Body mass index [BMI] 38.0-38.9, adult
CPT/HCPCS: 36415; 71010; 76700; 80048; 80053; 81001; 82330; 82340; 82550; 82652; 82962; 83690; 83735; 83970; 84100; 84484; 85025; 85610; 85730; 93005; 93306; 96361; 96374; 96375; 99285; J1815; J3475; J3480; J3490; J7030; J7050; J7060